=== PATIENT | female | born 1935 | race Caucasian/White ===

== ENCOUNTER 2016-06-27 12:28 | Inpatient (IN) ==
[2016-06-27] MEDS ORDERED: LASIX IVP STA (13:12)
[2016-06-27 13:27] LABS: ABG BASE EXCESS -4 (-2.0-2.0); ABG HCO3 20.9 (22.0-26.0); ABG PCO2 36.3 mmHg (35-45); ABG PH 7.368 (7.35-7.45); ABG TCO2 22 (22.0-28.0)
[2016-06-27] MEDS: ROCEPHIN 1 GM in SODIUM CHLORIDE 100 ML IV SCH (13:30)
[2016-06-27] MEDS: DUONEB NEB SCH ×2 (13:34→22:26)
[2016-06-27 13:42] LABS: BASOPHILS # (AUTO) 0.1 K/uL (0-0.2); BASOPHILS % (AUTO) 0.5 % (0.0-3.0); EOSINOPHILS % (AUTO) 0.1 % (0.0-7.0); HEMATOCRIT 31.9 % (37.0-47.0); HEMOGLOBIN 10.9 g/dl (12.0-16.0); IMMATURE GRANULOCYTE % (AUTO) 0.8 % (0.0-5.0); LYMPHOCYTES # (AUTO) 0.5 K/uL (0.60-3.4); LYMPHOCYTES % (AUTO) 3.9 (10.0-50.0); MEAN CORPUSCULAR HEMOGLOBIN 31.7 pg (27.0-31.0); MEAN CORPUSCULAR HGB CONC 34.2 (31.8-35.4); MEAN CORPUSCULAR VOLUME 92.7 fl (81.0-99.0); MONOCYTES # (AUTO) 0.8 K/uL (0.4-2.0); MONOCYTES % (AUTO) 5.8 (0-10); NEUTROPHILS # (AUTO) 12.2 K/ul (2.0-6.9); NEUTROPHILS % (AUTO) 88.9; PLATELET COUNT 481 10^3/uL (140-440); RED BLOOD COUNT 3.44 10^6/ul (4.20-5.40); WHITE BLOOD COUNT 13.69 K/ul (4.6-10.2)
[2016-06-27 13:47] LABS: ALBUMIN 3.4 g/dL (3.4-5.0); ALBUMIN/GLOBULIN RATIO 0.85; ANION GAP 15.9; BILIRUBIN,TOTAL 0.49 mg/dL (0.00-1.20); BUN/CREATININE RATIO 15.81; CALCIUM 9.2 mg/dL (8.2-10.2); CREATININE 1.96 mg/dL (0.60-1.30); POTASSIUM 3.9 mmol/L (3.5-5.10); TOTAL PROTEIN 7.4 g/dL (5.8-8.1)
[2016-06-27] MEDS: SOLU-MEDROL 40 MG IVP SCH ×2 (14:33→20:11)
[2016-06-27 16:01] VITALS: BMI 20.8
--- NOTE | 2016-06-27 16:11 | CT ---
EXAM: CT chest without contrast. HISTORY: Bronchitis. COMPARISON: Chest radiograph 03/10/2010. TECHNIQUE: Multiple axial images of the chest were obtained without intravenous contrast. Images w ere reformatted in the sagittal and coronal planes. FINDINGS: Evaluation for lymphadenopathy is limited due to lack of intravenous contrast. Multiple small mediastinal lymph nodes are seen. Calcified subcarinal lymph nodes are present. Heart is mil dly enlarged. Atherosclerotic calcifications are present. There is no large pericardial effusion. There are bilateral pleural effusions, moderate in size. Diffuse bilateral ground-glass opacities s een with areas of consolidation in both lungs, greater on the right. Interlobular septal thickening seen bilaterally. No pneumothorax identified. Moderate sized hiatal hernia is present. There is a large cystic mass of the lower left kidney whic h is incompletely imaged but measures at least 7.7 cm diameter. There are some calcified septations within this mass. These were present on the abdominal CT dated 04/14/2010. No other fluid density mass is seen in both renal cortices. Old appearing compression deformity of the T8 vertebral body noted IMPRESSION: Pulmonary edema. Correlate for superimposed pneumonia. Follow-up chest CT within 3 months recommend ed for reassessment.
[2016-06-27] MEDS: PROTONIX PO SCH (16:24)
[2016-06-27 18:43] LABS: BILIRUBIN,URINE Negative (NEGATIVE); KETONES,URINE Negative (NEGATIVE); LEUKOCYTE ESTERASE ,URINE 1+ (NEGATIVE); NITRITE,URINE Positive (NEGATIVE); PROTEIN,URINE 1+ (NEGATIVE); URINE, BLOOD Trace-lysed (NEGATIVE)
[2016-06-27 18:44] LABS: ADD URINE MICROSCOPIC YES
[2016-06-27 18:45] LABS: BACTERIA,URINE 2+ (NOT PRESENT)
[2016-06-27] MEDS ORDERED: KLONOPIN ONE (20:09)
[2016-06-27] MEDS: ULTRAM PO PRN (20:11)
[2016-06-27] MEDS: PRAVACHOL PO SCH (20:11)
[2016-06-27] MEDS: ANTIVERT PO PRN (20:12)
[2016-06-27] MEDS ORDERED: NON-FORMULARY MEDICATION (Esomeprazole Magnesium [Nexium] 40 MG) PO SCH ×22 (21:00)
[2016-06-27] MEDS: KLONOPIN PO SCH (21:00)
[2016-06-27] MEDS ORDERED: LIPITOR PO SCH (21:00)
[2016-06-27] MEDS ORDERED: PRAVACHOL PO SCH (21:00)
[2016-06-28 00:57] LABS: ABG PCO2 37.5 mmHg (35-45); ABG PH 7.365 (7.35-7.45)
[2016-06-28 00:58] LABS: ABG BASE EXCESS -4 (-2.0-2.0); ABG HCO3 21.4 (22.0-26.0); ABG TCO2 23 (22.0-28.0)
[2016-06-28] MEDS: SOLU-MEDROL 40 MG IVP SCH ×3 (04:40→20:19)
[2016-06-28] MEDS: DUONEB NEB SCH ×3 (05:00→21:20)
[2016-06-28] MEDS: PROTONIX PO SCH ×2 (05:51→16:53)
[2016-06-28] MEDS ORDERED: LASIX IVP STA (08:57)
[2016-06-28] MEDS ORDERED: KLONOPIN PO SCH (09:00)
[2016-06-28] MEDS: NORVASC PO SCH (09:10)
[2016-06-28] MEDS: TENORMIN PO SCH (09:10)
[2016-06-28] MEDS: MUCINEX PO SCH (09:11)
[2016-06-28] MEDS: ROCEPHIN 1 GM in SODIUM CHLORIDE 100 ML IV SCH (09:11)
[2016-06-28] MEDS: ZESTRIL PO SCH (09:12)
[2016-06-28 10:13] LABS: HEMATOCRIT 32.3 % (37.0-47.0); HEMOGLOBIN 10.9 g/dl (12.0-16.0); IMMATURE GRANULOCYTE % (AUTO) 1.3 % (0.0-5.0); LYMPHOCYTES # (AUTO) 0.3 K/uL (0.60-3.4); LYMPHOCYTES % (AUTO) 3.5 (10.0-50.0); MEAN CORPUSCULAR HEMOGLOBIN 31.1 pg (27.0-31.0); MEAN CORPUSCULAR HGB CONC 33.7 (31.8-35.4); MEAN CORPUSCULAR VOLUME 92.3 fl (81.0-99.0); MONOCYTES # (AUTO) 0.2 K/uL (0.4-2.0); MONOCYTES % (AUTO) 1.8 (0-10); NEUTROPHILS # (AUTO) 8.8 K/ul (2.0-6.9); NEUTROPHILS % (AUTO) 93.4; PLATELET COUNT 529 10^3/uL (140-440); WHITE BLOOD COUNT 9.39 K/ul (4.6-10.2)
[2016-06-28 10:24] LABS: ALBUMIN 3.3 g/dL (3.4-5.0); ALBUMIN/GLOBULIN RATIO 0.83; ANION GAP 18.7; BILIRUBIN,TOTAL 0.3 mg/dL (0.00-1.20); BUN/CREATININE RATIO 15.78; CREATININE 1.9 mg/dL (0.60-1.30); POTASSIUM 3.7 mmol/L (3.5-5.10); TOTAL PROTEIN 7.3 g/dL (5.8-8.1)
[2016-06-28] MEDS: ULTRAM PO PRN ×3 (12:12→20:23)
--- NOTE | 2016-06-28 14:24 | PCM.PROG ---
Attending Provider: ATTENDING PROVIDER: Dr. ERAN JOYNER DATE OF SERVICE: 06/28/16 SUBJECTIVE: This 81 year old WHITE/ F was hospitalized 06/27/16. The patient states she is doing pretty well, was coughing this morning. Cough productive. Pulse ox dropped into the 80s last night while sleeping and was put on venti mask. REVIEW OF SYSTEMS: CONSTITUTIONAL: No fever, no chills. ENDOCRINE: No weight loss or weight gain. HEENT: No sinus drainage, no sore throat. CVS: No angina symptoms. No CHF symptoms. No palpitations. No atypical chest pain for CAD. No shortness of breath. RESPIRATORY: No cough, no hemoptysis. GI: No melena. No abdominal pain. No nausea, no vomiting. : No hematuria. No polyuria. SKIN: No rash. No wounds. MUSCULOSKELETAL: No pain. TRACK HELPER: No blackout, no dizziness. No headache. No double vision. PSYCHIATRIC: Not anxious; no depression. No suicidal thoughts. No homicidal thoughts. PHYSICAL EXAMINATION: GENERAL: Lying in bed in no distress. VITAL SIGNS: Temperature 96.9 F, Pulse 83, Respiratory Rate 21, BP 147/84, Pulse Ox 92% HEENT: Normocephalic, atraumatic. Mucosa is dry, pallor positive. NECK: No JVP, no carotid bruit. No lymphadenopathy. CARDIAC: S1, S2, no S3. No murmur, gallop or regurgitation. LUNGS: Decreased entry with crackles left side. ABDOMEN: Soft, non-tender. Bowel sounds active. No rigidity, guarding or CVA tenderness. EXTREMITIES: No clubbing, cyanosis or edema. NEUROLOGIC: Awake, alert and oriented x3. LYMPHATIC: No palpable lymph nodes SKIN: Not dry. Intact. MUSCULOSKELETAL: No joint swelling. LAB REVIEW: 06/27/16 13:20 06/27/16 13:20 06/28/16 00:50: Puncture Site Rb, O2 Saturation 85.0 L, ABG pH 7.365, ABG pCO2 37.5, ABG pO2 52.0 L*, ABG HCO3 21.4 L, ABG Total CO2 23, ABG Base Excess -4 L, José Luis Test +, O2 Delivery Device Nc, Oxygen Liter Flow 6.00, FiO2 % 44.0 06/27/16 18:22: Urine Color Yellow, Urine Clarity Slightly, Urine pH 5.0, Ur Specific [place] 1.010, Urine Protein 1+, Urine Glucose (UA) Negative, Urine Ketones Negative, Urine Blood Trace-lysed, Urine Nitrite Positive, Urine Bilirubin Negative, Urine Urobilinogen 0.2, Ur Leukocyte Esterase 1+, Urine Microscopic RBC 2-5, Urine Microscopic WBC 20-30, Ur Squamous Epith Cells 0-2, Ur Renal Epithelial Cell 0-2, Urine Bacteria 2+ 06/27/16 13:20: WBC 13.69 H, RBC 3.44 L, Hgb 10.9 L, Hct 31.9 L, MCV 92.7, MCH 31.7 H, MCHC 34.2, RDW Coeff of Marcelino 12.9, Plt Count 481 H, Immature Gran % (Auto ) 0.8, Neut % (Auto) 88.9, Lymph % (Auto) 3.9 L, [place] % (Auto) 5.8, Eos % (Auto ) 0.1, Baso % (Auto) 0.5, Immature Gran # (Auto) 0.1, Neut # 12.2 H, Lymph # 0.5 L, [place] # 0.8, Eos # 0.0, Baso # 0.1, D-Dimer 1.31, Puncture Site R rad, O2 Saturation 82.0 L, ABG pH 7.368, ABG pCO2 36.3, ABG pO2 47.0 L*, ABG HCO3 20.9 L , ABG Total CO2 22, ABG Base Excess -4 L, José Luis Test +, FiO2 % 21.0, Sodium 136 , Potassium 3.9, Chloride 102, Carbon Dioxide 22 L, Anion Gap 15.9, BUN 31 H, Creatinine 1.96 H, Estimated GFR (MDRD) 24.00, BUN/Creatinine Ratio 15.81, Glucose 126 H, Calcium 9.2, Total Bilirubin 0.49, AST 15, ALT 11 L, Alkaline Phosphatase 70, B-Natriuretic Peptide 2126 H, Total Protein 7.4, Albumin 3.4, Globulin 4.0, Albumin/Globulin Ratio 0.85 ASSESSMENT: 1. Acute on chronic heart failure 2. Community acquired pneumonia 3. COPD 4. Hypertension 5. Dyslipidemia 6. Chronic kidney disease 7. Anemia PLAN: 1. Lasix 20 mg IV times one 2. Ambulate 3. Chest x-ray tomorrow 4. Daily I & O's 5. Lisinopril 5 mg p.o. daily Plan and coordination of the patient's care discussed in the presence of Sexual Assault Response Coordinator and nurse. CONDITION: Stable SCRIBED BY: MEHNAZ CASTELLANOS Water Technician scribed while in presence of service performed by Dr. ERAN JOYNER on 06/28/16 ([id number])
--- NOTE | 2016-06-28 15:54 | HP ---
DATE OF SERVICE: 06/27/16 REASON FOR HOSPITALIZATION/ HISTORY OF PRESENT ILLNESS: Since Monday, not able to breath well, coughing some, no sinus drainage, ears full. No chest pain, weak and tired. Not been sleeping and shortness of breath. REVIEW OF SYSTEMS: CONSTITUTIONAL: No fever, Fatigue. HEENT: No sinus drainage, no sore throat. RESPIRATORY: Cough, no congestion. CARDIOVASCULAR: No atypical chest pain for coronary artery disease. No angina , CHF symptoms, palpitations or shortness of breath. GASTROINTESTINAL: No melena or abdominal pain. No GERD. GENITOURINARY: No hematuria, no prostatism, no polyuria. ARCHAEOLOGIST: No blackout, no dizziness, no headache, no double vision. Gait: Cane MUSCULOSKELETAL: Osteoarthritis pain, no joint swelling. ENDOCRINE: No weight loss, no weight gain. SKIN: Not dry, no rash. PSYCHIATRIC: Anxious, no depression, no suicidal thoughts, no homicidal thoughts. SOCIAL HISTORY: Marital Status: . Alcohol Usage: No . Tobacco Usage: No. Family history : Not significant. PAST SURGERY HISTORY: Status post cholecystectomy MEDICATIONS: Nexium 40mg PO twice a day Ultram 50mg PO Q 4 hours PRN Norvasc 5mg PO daily Atenolol 50mg PO daily Pravachol 40mg PO bedtime Meclizine 25mg PO three times a day PRN Klonopin 0.5mg PO daily Aspirin 81mg daily Prolia 60mg/ml syringe Multivitamin Iron 325mg tablet Calcium ALLERGIES: No know allergies PHYSICAL EXAMINATION: V/S: pulse 85, blood pressure 138/68 and pulse ox 87%. GENERAL APPEARANCE: Oriented times three. Mucosa dry. HEENT: Normal. NECK: No JVP, no bruits. RESPIRATORY:Decreased entry and clear. CARDIOVASCULAR: S1, S2, no S3, no murmurs. No cyanosis, clubbing. No ascites. GI/ABDOMEN: No tenderness. Bowel sounds are active. EXTREMITIES: 2+ edema, pulses +1, equal. ARCHAEOLOGIST: Deep tendon reflexes, sensory, motor and gait all normal. RECTAL: Refused. ASSESSMENT: 1. Shortness of breath, congestive heart failure or pneumonia 2. Hypoxemia 1. Dyslipidemia 2. 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 GERD 5. Anemia 6. Hypertension 7. Chronic kidney disease, stage 3 8. Osteoporosis, Prolia PLAN: 1. Admit to regular floor with telemetry protocol 2. CBC, CMP, BNP and D-dimer. 3. ABG- room air 4. U/A 5. CT chest with contrast 6. Normal saline at SL 7. Cardiac diet 8. DUO NEBS four times a day 9. Solu-Medrol 40 Q 8 hours 10. Lasix 20 mg IVP times one dose 11. Rocephin 1 gram IV daily TIME SPENT: More than 70 minutes. MTDD
[2016-06-28] MEDS: ANTIVERT PO PRN (20:19)
[2016-06-28] MEDS: PRAVACHOL PO SCH (20:19)
[2016-06-28] MEDS: KLONOPIN PO SCH (20:19)
[2016-06-29] MEDS: DUONEB NEB SCH ×3 (04:53→22:50)
[2016-06-29] MEDS: SOLU-MEDROL 40 MG IVP SCH ×3 (05:54→21:53)
[2016-06-29] MEDS: PROTONIX PO SCH ×2 (05:54→17:08)
[2016-06-29] MEDS: ULTRAM PO PRN ×2 (09:43→16:14)
[2016-06-29] MEDS: TESSALON PERLES PO SCH ×3 (09:44→21:53)
[2016-06-29] MEDS: ROCEPHIN 1 GM in SODIUM CHLORIDE 100 ML IV SCH (09:44)
[2016-06-29] MEDS: ZESTRIL PO SCH (09:44)
[2016-06-29] MEDS: NORVASC PO SCH (09:44)
[2016-06-29] MEDS: MUCINEX PO SCH (09:44)
[2016-06-29] MEDS: TENORMIN PO SCH (09:44)
--- NOTE | 2016-06-29 13:36 | PCM.PROG ---
Attending Provider: ATTENDING PROVIDER: Dr. ERAN JOYNER DATE OF SERVICE: 06/29/16 SUBJECTIVE: This 81 year old WHITE/ F was hospitalized 06/27/16. The patient is lying in bed in no distress. She walked yesterday, has less shortness of breath. She has some cough; no congestion. She complained of a dry cough overnight. REVIEW OF SYSTEMS: CONSTITUTIONAL: No fever, no chills. ENDOCRINE: No weight loss or weight gain. HEENT: No sinus drainage, no sore throat. CVS: No angina symptoms. No CHF symptoms. No palpitations. No atypical chest pain for CAD. Less shortness of breath. RESPIRATORY: Dry cough, no hemoptysis. GI: No melena. No abdominal pain. No nausea, no vomiting. : No hematuria. No polyuria. SKIN: No rash. No wounds. MUSCULOSKELETAL: No pain. LEARNING SUPPORT SERVICES DIRECTOR: No blackout, no dizziness. No headache. No double vision. PSYCHIATRIC: Not anxious; no depression. No suicidal thoughts. No homicidal thoughts. PHYSICAL EXAMINATION: GENERAL: Cachetic appearing lady lying in bed in no distress. VITAL SIGNS: Temperature 97.8 F, Pulse 83, Respiratory Rate 16, BP 124/69, Pulse Ox 93% HEENT: Normocephalic, atraumatic. No scleral icterus. Mucosa is dry, pallor positive. NECK: No JVP, no carotid bruit. No lymphadenopathy. CARDIAC: S1, S2, no S3. No murmur, gallop or regurgitation. LUNGS: Decreased entry with basilar crackles. Clear to auscultation. ABDOMEN: Soft, non-tender. Bowel sounds active. No rigidity, guarding or CVA tenderness. EXTREMITIES: No clubbing, cyanosis or edema. NEUROLOGIC: Awake, alert and oriented x3. LYMPHATIC: No palpable lymph nodes SKIN: Not dry. Intact. MUSCULOSKELETAL: No joint swelling. LAB REVIEW: 06/28/16 09:55 06/28/16 09:55 06/28/16 09:55: WBC 9.39, RBC 3.50 L, Hgb 10.9 L, Hct 32.3 L, MCV 92.3, MCH 31.1 H, MCHC 33.7, RDW Coeff of Marcelino 13.2, Plt Count 529 H, Immature Gran % (Auto ) 1.3, Neut % (Auto) 93.4, Lymph % (Auto) 3.5 L, [place] % (Auto) 1.8, Eos % (Auto ) 0.0, Baso % (Auto) 0.0, Immature Gran # (Auto) 0.1, Neut # 8.8 H, Lymph # 0.3 L, [place] # 0.2 L, Eos # 0.0, Baso # 0.0, Sodium 136, Potassium 3.7, Chloride 100 , Carbon Dioxide 21 L, Anion Gap 18.7, BUN 30 H, Creatinine 1.90 H, Estimated GFR (MDRD) 25.00, BUN/Creatinine Ratio 15.78, Glucose 188 H D, Calcium 9.0, Total Bilirubin 0.30, AST 12 L, ALT 10 L, Alkaline Phosphatase 67, Total Protein 7.3, Albumin 3.3 L, Globulin 4.0, Albumin/Globulin Ratio 0.83 ASSESSMENT: 1. Shortness of breath, congestive heart failure or pneumonia. 2. Hypoxemia 3. Dyslipidemia 4. Sciatica 5. History of CVA right facial palsy 6. GERD 7. Anemia 8. Hypertension 9. Chronic kidney disease, Stage 3 10. Osteoporosis. PLAN: 1. Tessalon Perles 2. Continue Rocephin and Duonebs 3. Out of bed to chair 4. Chest x-ray Plan and coordination of the patient's care discussed in the presence of Technical Adjuster and nurse. CONDITION: Stable SCRIBED BY: MEHNAZ CASTELLANOS Community Health Advisor scribed while in presence of service performed by Dr. ERAN JOYNER on 06/29/16 ([id number])
--- NOTE | 2016-06-29 14:12 | DI ---
EXAM: CHEST FRONTAL AND LATERAL VIEWS HISTORY: Shortness of breath. COMPARISON: 03/10/2010 FINDINGS: Low lung volumes. Heart size is probably remains within normal limits. There is ectasia and moderate atherosclerotic disease of the aorta. Small bilateral pleural effusions. Basilar con solidation, much more noticeable on the left. No active congestive heart failure visible pneumothor ax. IMPRESSION: Low lung volumes. Basilar consolidations most apparent on the left which could indicate atelectasis or pneumonia. Tiny pleural effusions. No active congestive heart failure.
[2016-06-29] MEDS: KLONOPIN PO SCH (21:53)
[2016-06-29] MEDS: PRAVACHOL PO SCH (21:53)
[2016-06-30] MEDS: ULTRAM PO PRN ×3 (00:34→21:02)
[2016-06-30] MEDS: DUONEB NEB SCH ×3 (05:18→22:33)
[2016-06-30] MEDS: SOLU-MEDROL 40 MG IVP SCH ×3 (05:28→20:56)
[2016-06-30] MEDS: PROTONIX PO SCH ×2 (05:36→19:29)
[2016-06-30] MEDS: NORVASC PO SCH (09:44)
[2016-06-30] MEDS: ROCEPHIN 1 GM in SODIUM CHLORIDE 100 ML IV SCH (09:44)
[2016-06-30] MEDS: MUCINEX PO SCH (09:44)
[2016-06-30] MEDS: ZESTRIL PO SCH (09:44)
[2016-06-30] MEDS: TESSALON PERLES PO SCH ×3 (09:44→20:56)
[2016-06-30] MEDS: TENORMIN PO SCH (09:45)
[2016-06-30] MEDS: KEFLEX PO SCH (20:56)
[2016-06-30] MEDS: KLONOPIN PO SCH (20:56)
[2016-06-30] MEDS: PRAVACHOL PO SCH (20:56)
[2016-07-01] MEDS: DUONEB NEB SCH ×2 (05:00→14:03)
[2016-07-01] MEDS: SOLU-MEDROL 40 MG IVP SCH ×2 (05:55→13:00)
[2016-07-01] MEDS: PROTONIX PO SCH (05:55)
[2016-07-01] MEDS ORDERED: ANTIVERT PO SCH (09:00)
[2016-07-01] MEDS: TESSALON PERLES PO SCH (09:13)
[2016-07-01] MEDS: MUCINEX PO SCH (09:13)
[2016-07-01] MEDS: TENORMIN PO SCH (09:14)
[2016-07-01] MEDS: KEFLEX PO SCH (09:14)
[2016-07-01] MEDS: NORVASC PO SCH (09:14)
[2016-07-01] MEDS: ZESTRIL PO SCH (09:14)
--- NOTE | 2016-07-01 09:20 | PCM.PROG ---
Attending Provider: ATTENDING PROVIDER: Dr. ERAN JOYNER DATE OF SERVICE: 07/01/16 SUBJECTIVE: This 81 year old WHITE/ F was hospitalized 06/27/16. The patient is sitting up in bed in no distress. She states she walked yesterday. She feels good today. The patient is dropping sats and qualifies for home o2. I discussed this with the patient; she is in agreement and verbalized understanding. REVIEW OF SYSTEMS: CONSTITUTIONAL: No fever, no chills. ENDOCRINE: No weight loss or weight gain. HEENT: No sinus drainage, no sore throat. CVS: No angina symptoms. No CHF symptoms. No palpitations. No atypical chest pain for CAD. No shortness of breath. RESPIRATORY: Dry, hacking cough. No hemoptysis. GI: No melena. No abdominal pain. No nausea, no vomiting. : No hematuria. No polyuria. SKIN: No rash. No wounds. MUSCULOSKELETAL: No pain. PLASTIC PANEL INSTALLER: No blackout, no dizziness. No headache. No double vision. PSYCHIATRIC: Not anxious; no depression. No suicidal thoughts. No homicidal thoughts. PHYSICAL EXAMINATION: GENERAL: Sitting in bed in no distress. VITAL SIGNS: Temperature 97.0 F, Pulse 80, Respiratory Rate 16, BP 136/72, Pulse Ox 91% HEENT: Normocephalic, atraumatic. Mucosa is dry, pallor positive. NECK: No JVP, no carotid bruit. No lymphadenopathy. CARDIAC: S1, S2, no S3. No murmur, gallop or regurgitation. LUNGS: Decreased entry with basilar crackles. ABDOMEN: Soft, non-tender. Bowel sounds active. No rigidity, guarding or CVA tenderness. EXTREMITIES: No clubbing, cyanosis or edema. NEUROLOGIC: Awake, alert and oriented x3. LYMPHATIC: No palpable lymph nodes SKIN: Not dry. Intact. MUSCULOSKELETAL: No joint swelling. LAB REVIEW: 06/28/16 09:55 06/28/16 09:55 ASSESSMENT: 1. CHF 2. Hypoxemia needing oxygen PLAN: 1. Will discharge home 2. Keflex 500 mg b.i.d. for 5 days 3. Prednisone 10 mg b.i.d. for five days 4. Tessalon Perles 100 mg t.i.d. for 7 days 5. Robitussin t.i.d. for 7 days 6. Lasix 20 mg p.o. daily 7. No salt diet 8. Home oxygen 2L/NC as the patient feels better on 02. Discussed risks/ complications and benefits of oxygen. She verbalized understanding of this. 9. The patient is to followup in the office in one week. Plan and coordination of the patient's care discussed in the presence of Clearing Distribution Clerk and nurse. CONDITION: Stable. SCRIBED BY: MEHNAZ CASTELLANOS, Truck Rental Clerk scribed while in presence of service performed by Dr. ERAN JOYNER on 07/01/16 ([id number])
[2016-07-01] MEDS ORDERED: LASIX TAB PO SCH (09:30)
--- NOTE | 2016-07-01 10:20 | CM.DICTOOL ---
ADMISSION: 06/27/16 12:28 DISCHARGE: 07/01/16 FINAL DIAGNOSIS Hypoxia (Acute) Shortness of breath (Acute) CHF HISTORY OF: CAD HTN COPD DYSLIPIDEMIA S/P CATARACT SURGERY IN CVA 2013 GERD OSTEOARTHRITIS OSTEOPOROSIS ANEMIA CKD 3 LAST VITALS Temp Pulse Resp BP Pulse Ox 97.0 F L 80 16 136/72 91 L 07/01/16 05:39 07/01/16 05:39 07/01/16 05:39 07/01/16 05:39 07/01/16 05:39 ACTIVE MEDICATIONS Amlodipine Besylate (Norvasc) 5 mg PO DAILY [facility] Last Admin: 07/01/16 09:14 Dose: 5 mg Atenolol (Tenormin) 50 mg PO DAILY [facility] Last Admin: 07/01/16 09:14 Dose: 50 mg Benzonatate (Tessalon Perles) 100 mg PO TID [facility] Last Admin: 07/01/16 09:13 Dose: 100 mg Cephalexin (Keflex) 500 mg PO Q12HR [facility] Last Admin: 07/01/16 09:14 Dose: 500 mg Clonazepam (Klonopin) 0.5 mg PO BEDTIME [facility] Last Admin: 06/30/16 20:56 Dose: 0.5 mg Furosemide (Lasix Tab) 20 mg PO QDAC [facility] Lisinopril (Zestril) 5 mg PO DAILY [facility] Last Admin: 07/01/16 09:14 Dose: 5 mg Meclizine HCl (Antivert) 25 mg PO TID [facility] Last Admin: 07/01/16 09:14 Dose: 25 mg Pravastatin Sodium (Pravachol) 40 mg PO BEDTIME [facility] Last Admin: 06/30/16 20:56 Dose: 40 mg Tramadol HCl (Ultram) 50 mg PO Q4H PRN PRN Reason: pain Last Admin: 06/30/16 21:02 Dose: 50 mg NEXIUM 40 MG O BID ALLERGIES No Known Allergies Allergy (Unverified 03/14/16 10:37) NEW PRESCRIPTIONS: NEW MEDICATIONS: 1. LASIX 20MG TAKE 1 BY MOUTH DAILY 2. LISINOPRIL 5MG TAKE 1 BY MOUTH DAILY 3. KEFLEX 500MG TAKE 1 BY MOUTH 2 TIMES A DAY UNTIL ALL GONE 4. PREDNISONE 10MG TAKE 1 BY MOUTH 2 TIMES A DAY. TAKE WITH FOOD. 5. TESSALON PERLES 100MG TAKE 1 BY MOUTH 3 TIMES A DAY FOR COUGH. 6. ROBITUSSIN AC TAKE 5ML EVERY 4 HOURS NEEDED FOR COUGH. DISEASE SPECIFIC EDUCATION: CHF HYPOXEMIA O2 THERAPY ABX THERAPY STEROID THERAPY LAB REVIEW: 06/28/16 09:55 06/28/16 09:55 PLAN: DISCHARGE HOME CONTINUE HOME MEDICATIONS PER NURSING INSTRUCTIONS NEW MEDICATIONS: 1. LASIX 20MG TAKE 1 BY MOUTH DAILY 2. LISINOPRIL 5MG TAKE 1 BY MOUTH DAILY 3. KEFLEX 500MG TAKE 1 BY MOUTH 2 TIMES A DAY UNTIL ALL GONE 4. PREDNISONE 10MG TAKE 1 BY MOUTH 2 TIMES A DAY. TAKE WITH FOOD. 5. TESSALON PERLES 100MG TAKE 1 BY MOUTH 3 TIMES A DAY FOR COUGH. 6. ROBITUSSIN AC TAKE 5ML EVERY 4 HOURS NEEDED FOR COUGH. FOLLOW UP WITH DR. JOYNER ON MondayJune AT 10:15 AM. IF UNABLE TO KEEP THIS APPOINTMENT, CALL [phone] TO RESCHEDULE. ALERT AND ORIENTED X 4. COOPERATIVE WITH CARE. DRUM LOADER AND UNLOADER REVEALS SINUS RHYTHM. HAS DYSPNEA WITH ACTIVITY. HAS MOIST NON-PRODUCTIVE COUGH. POX 91% ON O2 AT 2L/C. HAS SALINE LOCK IN LEFT FOREARM SITE IS CLEAR. IS AFEBRILE. VITAL SIGNS ARE STABLE. IS A STANDBY ASSIST WITH STRAIGHT CANE. NO ACUTE DISTRESS NOTED. ERAN JOYNER MD
[2016-07-01 10:31] VITALS: BP 149/99; TEMP 97.2
--- NOTE | 2016-07-04 11:48 | ECHO2D ---
Date of Exam: 06/30/16 Ordering Physician: AMITA CASTRO Reason for Echo: CHF M-Mode Normal Adult Results LV Dimensions Normal Adult Results AoV Opening excursions >1.6 >1.6 LVEDD-base- 3.5-5.8 4.1 Ao root dimensions 2.0-3.7 2.9 LVESD-base- 3.1-4.6 L. Atrium dimensions 1.9-3.8 4.1 Post. Wall thickness 0.8-1.1 0.9 IV septum (thickness) 0.7-1.2 0.9 Post. Wall excursion 0.72-1.3 NORMAL Septal motion NORMAL Systolic motion R. Ventricular cavity 1.5-2.0 NORMAL LVEF 60% 55% Paradoxical septal wall motion NORMAL 2-D : 2-D M Mode Echocardiogram was performed using apical four chamber and left parasternal long and short axis views. Mitral, tricuspid and aortic valves appear to be normal. Contractility of the left ventricle seems to be normal, so is the cavity size. Left atrial cavity size enalarged,aortic root appear to be normal. There is no pericardial effusion. There is no thrombus noted in the left ventricular or left aortic cavity. No mitral valve prolapse noted. DOPPLER WITH COLOR FLOW: MODERATE MITRAL REGURGITATION M-MODE: MV: NORMAL AV: NORMAL TV: NORMAL PV: CHAMBER SIZE: ENLARGED LEFT ATRIAL CAVITY WALL MOTION: NORMAL PERICARDIUM: NORMAL INTERPRETATION: 1. ENLARGED LEFT ATRIAL CAVITY 2. NORMAL LEFT VENTRICULAR CONTRACTILITY 3. MODERATE MITRAL REGURGITATION MTDD
--- NOTE | 2016-08-25 11:31 | DS ---
DATE OF SERVICE: 07/01/16 FINAL DIAGNOSIS: 1. Hypoxia (acute) 2. Shortness of breath (acute) 3. Congestive heart failure 4. History of coronary artery disease 5. Hypertension 6. COPD 7. Dyslipidemia 8. Status post cataract surgery in 9. CVA 2012 10.GERD 11.Osteoarthritis 12.Osteoporosis 13.Anemia 14.Chronic kidney disease, stage 3 LAST VITALS: Temperature 97, pulse 80, respiratory rate 16, blood pressure 136/72 and pulse ox 91%. DISCHARGE INSTRUCTIONS: Discharge home. Continue home medications as per nursing instructions. Followup with Dr. Hodge on MondayJuly 08 at 10:15am. MEDICATIONS AT DISCHARGE: Norvasc Tenormin Tessalon Perles Keflex Klonopin Lasix Zestril Antivert Pravachol Ultram Nexium ALLERGIES: No known allergies NEW PRESCRIPTIONS: Lasix 20mg take one by mouth daily Lisinopril 5mg take one by mouth daily Keflex 500mg take one by mouth two times a day until all gone Prednisone 10mg take one by mouth two times a day. Take with food. Tessalon Perles 100mg take one by mouth three times a day for cough Robitussin AC take 5ml every 4 hours as needed for cough. DIET INSTRUCTIONS: Heart healthy and stay well hydrated. ACTIVITY: As tolerated. May gradually resume activity SMOKING: Never smoker DISEASE SPECIFIC EDUCATION: Congestive heart failure Hypoxemia O2 therapy ABX therapy Steroid therapy HOSPITAL COURSE: The patient was admitted from the office for hypoxemia, shortness of breath and she was initially seen the patient was hypoxic and acute shortness of breath. Labs showed BNP 2126. ABG showed pH 7.368, pCO2 36.[address] of the chest done which showed pulmonary edema. Correlate for superimposed pneumonia. The patient was started with IV antibiotics, steroids and breathing treatment. We had Dr. Miner to do an echocardiogram and he was courteous enough to do the echocardiogram which it did show enlarged left atrial cavity, normal left ventricular contractility, moderate mitral regurgitation with ejection fraction of 55%. The patient was gradually improving and was able to walk and talk fine. Did not have any problem but she was qualified for the oxygen and she was willing to use the oxygen and she understands the importance of oxygen and highly inflammable state and verbalized understanding. Still wanting to use it as it was helping her a lot. Advised her to take some probiotics and we will be seen in the office within one week. TIME SPENT: More than 45 minutes today. SONAM
--- NOTE | 2016-10-26 13:32 | PN ---
DATE OF SERVICE: 06/30/2016 SUBJECTIVE: The patient was admitted with congestive heart failure and hypoxemia. The patient is less short of breath, but more weak and tired. Complains about no energy. REVIEW OF SYSTEMS: CONSTITUTIONAL: Weak and tired. No fever, no chills. HEENT: Normal. ENDOCRINE: No weight gain, no weight loss. CVS: No angina symptoms. No palpitations. No atypical chest pain for CAD. Less shortness of breath. No PND, no orthopnea. RESPIRATORY: No cough, no hemoptysis. GI: No nausea, no vomiting. No abdominal pain. : No hematuria. No polyuria. MUSCULOSKELETAL:. No joint swelling. PSYCHIATRIC: Not anxious. No depression. No suicidal thoughts. No homicidal thoughts. SKIN: Intact. No rash. PHYSICAL EXAMINATION: V/S: Blood pressure 138/69, respiratory rate 16, heart rate 86, temperature 97.9. GENERAL: Cachectic lady lying in the bed, not in any distress. HEENT: Normocephalic, atraumatic. Mucosa dry. Pallor positive. No icterus. NECK: Supple. No JVD, no carotid bruit. No lymphadenopathy. LUNGS: Decreased and some basilar crackles. No rales or rhonchi. HEART: S1, S2 normal. No S3. Systolic murmur positive. No gallop or regurgitation. ABDOMEN: Soft, nontender. Bowel sounds active. No rigidity. No rebound or guarding. No CVA tenderness. EXTREMITIES: No clubbing, cyanosis or pedal edema. MUSCULOSKELETAL: No joint swelling. NEUROLOGIC: Awake, alert, oriented times three. No focal deficit. LYMPHATIC: No lymph nodes palpable. SKIN: Intact. LABS: White count 9.3, hemoglobin 10.9, hematocrit 32.3, platelet count 529, sodium 136, potassium 3.7, chloride 105, bicarb 21, BUN 30, creatinine 1.90. ASSESSMENT: 1. ACUTE ON CHRONIC HEART FAILURE 2. SEVERE MITRAL VALVE REGURGITATION 3. HYPERTENSION 4. HISTORY OF CVA IN 2012 WITH MINIMAL RESIDUAL WEAKNESS 5. TRANSVERSE CHOLECYSTECTOMY PLAN: 1. Continue the DuoNebs. 2. I & O's. 3. Klonopin at bedtime. 4. Lasix 20 mg. 5. Rocephin 1 gram daily. 6. Will follow up with the patient in daily rounds. TIME SPENT: More than 30 minutes MTDD
== END 2016-07-01 15:20 | disposition home or self-care (01) | DRG 205 ==
LOC: SCU 12:28
PROVIDERS: ADMIT Emergency Medicine; ATTEND Emergency Medicine
DX: R09.02 Hypoxemia (principal); J18.9 Pneumonia, unspecified organism; J81.1 Chronic pulmonary edema; I50.9 Heart failure, unspecified; R06.02 Shortness of breath; I51.7 Cardiomegaly; I34.0 Nonrheumatic mitral (valve) insufficiency; I25.10 Atherosclerotic heart disease of native coronary artery without angina pectoris; I10 Essential (primary) hypertension; J44.9 Chronic obstructive pulmonary disease, unspecified; D64.9 Anemia, unspecified; N18.3 Chronic kidney disease, stage 3 (moderate); E78.5 Hyperlipidemia, unspecified; K21.9 Gastro-esophageal reflux disease without esophagitis; I69.392 Facial weakness following cerebral infarction; M19.90 Unspecified osteoarthritis, unspecified site; M81.0 Age-related osteoporosis without current pathological fracture; Z79.01 Long term (current) use of anticoagulants; Z79.899 Other long term (current) drug therapy
CPT/HCPCS: 36415; 80053; 81001; 82803; 83880; 85025; 85379; 87086; 87186; 93005; 93010; 94640; 94761

== ENCOUNTER 2016-07-12 09:48 | Outpatient (CLI) ==
[2016-07-12 10:09] VITALS: BP 159/68; TEMP 98.5
[2016-07-12] MEDS ORDERED: PROLIA SUBCUT STA (10:09)
== END 2016-07-12 09:49 | disposition home or self-care (01) ==
LOC: OPMED 09:48
PROVIDERS: ATTEND Emergency Medicine
DX: M81.0 Age-related osteoporosis without current pathological fracture (principal); D64.9 Anemia, unspecified
CPT/HCPCS: 96372; 99211

== ENCOUNTER 2016-07-27 20:52 | Inpatient (IN) | payer OTHER ==
[2016-07-27] MEDS ORDERED: SODIUM CHLORIDE 1,000 ML IV STA (21:10)
[2016-07-27] MEDS ORDERED: URO-JET MUCOUSMEMB STA (21:10)
[2016-07-27] MEDS ORDERED: ZOFRAN 4 MG/2 ML IVP STA (21:18)
[2016-07-27 21:34] LABS: BASOPHILS % (AUTO) 0.3 % (0.0-3.0); EOSINOPHILS % (AUTO) 0.1 % (0.0-7.0); HEMATOCRIT 36.3 % (37.0-47.0); HEMOGLOBIN 13.2 g/dl (12.0-16.0); LYMPHOCYTES # (AUTO) 0.7 K/uL (0.60-3.4); MEAN CORPUSCULAR HEMOGLOBIN 30.8 pg (27.0-31.0); MEAN CORPUSCULAR HGB CONC 36.4 (31.8-35.4); MEAN CORPUSCULAR VOLUME 84.6 fl (81.0-99.0); MONOCYTES # (AUTO) 0.9 K/uL (0.4-2.0); MONOCYTES % (AUTO) 11.3 (0-10); NEUTROPHILS # (AUTO) 6.2 K/ul (2.0-6.9); NEUTROPHILS % (AUTO) 78.3; PLATELET COUNT 521 10^3/uL (140-440); RED BLOOD COUNT 4.29 10^6/ul (4.20-5.40); WHITE BLOOD COUNT 7.96 K/ul (4.6-10.2)
[2016-07-27 21:49] LABS: ABG BASE EXCESS 1 (-2.0-2.0); ABG HCO3 23.2 (22.0-26.0); ABG PCO2 27.5 mmHg (35-45); ABG PH 7.534 (7.35-7.45)
[2016-07-27 21:50] LABS: ABG TCO2 24 (22.0-28.0)
[2016-07-27 21:54] LABS: ALBUMIN 3.8 g/dL (3.4-5.0); ALBUMIN/GLOBULIN RATIO 1.06; ANION GAP 19.6; BILIRUBIN,TOTAL 0.66 mg/dL (0.00-1.20); BUN/CREATININE RATIO 17.68; CALCIUM 6.7 mg/dL (8.2-10.2); CREATININE 1.47 mg/dL (0.60-1.30); TOTAL PROTEIN 7.4 g/dL (5.8-8.1)
[2016-07-27 21:55] LABS: FLU INTERNAL QC INTERNAL QC VALID; RAPID FLU A NEGATIVE (NEGATIVE); RAPID FLU B NEGATIVE (NEGATIVE)
[2016-07-27 22:03] LABS: POTASSIUM 2.6 mmol/L (3.5-5.10)
[2016-07-27 22:07] LABS: ERYTHROCYTE SEDIMENTATION RATE 29 mm/hr (0-20); ESR INTERNAL QC INTERNAL QC VALID
[2016-07-27] MEDS ORDERED: POTASSIUM CHLORIDE PREMIX RUN 40 MEQ in PREMIX 100 ML WATER 2 BAG IV STA (22:08)
--- NOTE | 2016-07-27 22:17 | CT ---
EXAM: CT brain without contrast HISTORY: Confusion TECHNIQUE: CT of the brain without intravenous contrast FINDINGS: There is no acute hemorrhage midline shift or mass effect. No hydrocephalus or abnormal extra-axial fluid collection. Generalized involutional atrophy, moderate. Chronic microvascular ch anges of the white matter tracts, moderate. No acute large vessel territorial infarct is seen. The bony cranium appears normal. The visualized paranasal sinuses are clear. Soft tissues without signi ficant abnormality. IMPRESSION: 1. Chronic changes as described. No acute intracranial abnormality is seen.
[2016-07-27] MEDS ORDERED: POTASSIUM CHLORIDE PREMIX RUN 200 ML IV ONE (22:25)
--- NOTE | 2016-07-27 22:25 | CT ---
EXAM: CT of the chest without contrast. HISTORY: Cough. PROCEDURE: Contiguous axial CT images of the chest without contrast with coronal and sagittal refor mats. FINDINGS: The heart is within normal limits in size. The thoracic aorta is within normal limits in diameter. There are atherosclerotic calcifications in the thoracic aorta. There are coronary artery calcifications. There are calcified mediastinal lymph nodes. There is minimal lingular and bibasila r atelectasis and/or pneumonia. There is a moderate hiatal hernia. There are degenerative changes in the spine. Impression: Minimal lingular and bibasilar atelectasis and/or pneumonia. Atherosclerotic vascular disease. Moderate hiatal hernia.
--- NOTE | 2016-07-27 22:26 | CT ---
Exam: CT of the abdomen and pelvis without contrast History: Vomiting Technique: [address] of the abdomen and pelvis without intravascular contrast FINDINGS: The lung bases are clear. Small to moderate hiatus hernia is present. The liver, pancre as, spleen and adrenal glands appear normal. There is a large left renal cyst measuring 7 cm. Smal ler cysts present on both kidneys. No hydronephrosis, hydroureter or inflammation is seen on either side. The appendix is normal. Bowel loops demonstrate normal caliber. No inflamatory change seen i n the mesentery or retroperitoneum. Atherosclerotic calcification of the aorta and visceral arteries. No aneurysmal dilation of the aor ta. Colonic diverticulosis of the sigmoid. No inflammation of the pelvic fat. No free pelvic fluid. N ormal pelvic genitourinary structures. No acute findings of the skeleton. Impression: 1. No inflammatory process, bowel or urinary obstruction is seen. 2. Bilateral renal cysts 3. Small to moderate hiatus hernia 4. Colonic diverticulosis 5. No acute findings of the abdomen or pelvis
[2016-07-27] MEDS ORDERED: TRANDATE IVP STA (22:57)
[2016-07-27] MEDS ORDERED: VASOTEC IV IVP STA (22:57)
[2016-07-27 22:58] LABS: BILIRUBIN,URINE Negative (NEGATIVE); KETONES,URINE Trace (NEGATIVE); LEUKOCYTE ESTERASE ,URINE Negative (NEGATIVE); NITRITE,URINE Negative (NEGATIVE); PROTEIN,URINE 2+ (NEGATIVE); URINE, BLOOD Trace-intact (NEGATIVE)
--- NOTE | 2016-07-27 23:00 | ED.PDOC ---
General ED Provider: Dr. ALESSIA FRANCO-ER Chief Complaint: Nausea/Vomiting Stated Complaint: shes had vomiting and diarrhea for a day--not been able to take her bp meds Time Seen by Physician: 20:55 Mode of Arrival: Wheelchair Information Source: Patient, Family Exam Limitations: No limitations Primary Care Provider: AMITA CASTRO Nursing and Triage Documentation Reviewed and Agree: Yes GI Complaint Exam - Vomiting/Diarrhea Complaint/Exam Onset/Duration: 24hrs Symptoms Are: Still present Initial Severity: Mild Current Severity: Moderate Character of Vomiting: Reports: Non-bilious Character of Diarrhea: Reports: Watery Aggravating: Reports: Food Alleviating: Reports: None Associated Signs and Symptoms: Denies: Dizziness, Light-headedness, Melena, Hematemesis, Fever, Abdominal pain, Cramping Recent Positive Test: No Use of Oral Contraceptives: No Use of Depoprovera: No Compliant With Contraceptive Use: No Non-GI Risk Factors: Reports: None Kussmaul Respirations Present: No Differential Diagnoses: Dehydration, Viral Gastroenteritis, Bacterial Gastroenteritis, UTI Review of Systems - Review Of Systems Constitutional: Reports: No symptoms Eyes: Reports: No symptoms Ears, Nose, Mouth, Throat: Reports: No symptoms Respiratory: Reports: No symptoms Cardiac: Reports: No symptoms GI: Reports: Diarrhea, Nausea, Vomiting : Reports: No symptoms Musculoskeletal: Reports: No symptoms Skin: Reports: No symptoms Neurological: Reports: No symptoms Endocrine: Reports: No symptoms Hematologic/Lymphatic: Reports: No symptoms All Other Systems: Reviewed and Negative Past Medical History - Past Medical History Previously Healthy: Yes Endocrine: Reports: Dyslipidemia Cardiovascular: Reports: Hypertension Respiratory: Reports: None Hematological: Reports: None Gastrointestinal: Reports: GERD Genitourinary: Reports: None Neuro/Psych: Reports: None Musculoskeletal: Reports: None Cancer: Reports: None Last Menstrual Period: post menopausal - Surgical History General Surgical History: Reports: None - Family History Family History: Reports: None - Social History Smoking Status: Never smoker Hx Substance Use: No Alcohol Screening: None Lives: With family - Immunizations Tetanus Shot up to Date: Yes (unsure but believes it's up to date) Physical Exam - Physical Exam Appearance: Well-appearing, No pain distress, Well-nourished Pain Distress: Mild Eyes: KOBE ENT: Ears normal, Nose normal, Oropharynx normal Neck: Supple Respiratory: Airway patent, Breath sounds clear, Breath sounds equal, Respirations nonlabored Cardiovascular: RRR, Pulses normal, No rub, No murmur GI/: Soft, Nontender, No masses, Bowel sounds normal, No Organomegaly Musculoskeletal: Normal strength, ROM intact, No edema, No calf tenderness Skin: Warm, Dry, Normal color Neurological: Sensation intact, Motor intact, Reflexes intact, Cranial nerves intact, Alert, Oriented Psychiatric: Affect appropriate, Mood appropriate Interpretation - Radiology Interpretation Radiology Interpretation By: Radiologist Radiology Results: Negative Exam Interpreted: CT Scan - EKG Interpretation Time of EKG #1: 23:00 Rate: Normal Rhythm: Sinus Ectopy: None [place]: NL ST Segment: Normal Physician Notification - Case Discussed Physician Notified: dr muro Critical Care Note - Critical Care Note Total Time (mins): 0 Course - Course Hematology/Chemistry: 07/27/16 21:30 07/27/16 21:30 Orders, Labs, Meds: Lab Review 07/27/16 07/27/16 07/27/16 21:09 21:30 22:50 WBC 7.96 RBC 4.29 Hgb 13.2 Hct 36.3 L MCV 84.6 MCH 30.8 MCHC 36.4 H RDW Coeff of Marcelino 12.3 Plt Count 521 H Immature Gran % (Auto) 1.0 Neut % (Auto) 78.3 Lymph % (Auto) 9.0 L [place] % (Auto) 11.3 H Eos % (Auto) 0.1 Baso % (Auto) 0.3 Immature Gran # (Auto) 0.1 Neut # 6.2 Lymph # 0.7 [place] # 0.9 Eos # 0.0 Baso # 0.0 ESR 29 H D-Dimer 0.89 Puncture Site Lb O2 Saturation 99.0 ABG pH 7.534 H* ABG pCO2 27.5 L ABG pO2 103.0 H ABG HCO3 23.2 ABG Total CO2 24 ABG Base Excess 1 José Luis Test + FiO2 % 21.0 Sodium 121 L Potassium 2.6 L* Chloride 79 L Carbon Dioxide 25 Anion Gap 19.6 BUN 26 H Creatinine 1.47 H Estimated GFR (MDRD) 34.00 BUN/Creatinine Ratio 17.68 Glucose 126 H Lactic Acid 9.8 Calcium 6.7 L Total Bilirubin 0.66 AST 16 ALT 13 Alkaline Phosphatase 87 Total Protein 7.4 Albumin 3.8 Globulin 3.6 Albumin/Globulin Ratio 1.06 Amylase 40 Lipase 37 Procalcitonin 0.14 Urine Color Yellow Urine Clarity Clear Urine pH 7.0 Ur [address] [place] 1.020 Urine Protein 2+ Urine Glucose (UA) Negative Urine Ketones Trace Urine Blood Trace-intact Urine Nitrite Negative Urine Bilirubin Negative Urine Urobilinogen 0.2 Ur Leukocyte Esterase Negative Urine Microscopic RBC 2-5 Ur Squamous Epith Cells 0-2 Urine Bacteria Trace Influenza A (Rapid) Negative Influenza B (Rapid) Negative Orders Category Date Time Status ABG DRAW REQUEST Stat CARDIO 07/27/16 21:10 Completed EKG-(ED ONLY) Stat CARDIO 07/27/16 21:09 Completed ED IV/MEDIPORT/POWERPORT .ONCE EMERGENCY 07/27/16 21:10 Active Diaz [ED CATHETER INSERTION AND CARE] .ONCE EMERGENCY 07/27/16 21:10 Active ABG Stat LAB 07/27/16 21:09 Completed AMYLASE Stat LAB 07/27/16 21:30 Completed CBC W/ AUTO DIFF Stat LAB 07/27/16 21:30 Completed COMPREHENSIVE METABOLIC PANEL Stat LAB 07/27/16 21:30 Completed D-DIMER Stat LAB 07/27/16 21:30 Completed ESR Stat LAB 07/27/16 21:30 Completed LACTIC ACID Stat LAB 07/27/16 21:30 Completed LIPASE Stat LAB 07/27/16 21:30 Completed MOLECULAR GROUP A STREP Stat LAB 07/27/16 21:30 Results PROCALCITONIN Stat LAB 07/27/16 21:30 Completed RAPID FLU A/B Stat LAB 07/27/16 21:30 Completed STREP SCREEN Stat LAB 07/27/16 21:30 Results URINALYSIS C & S IF INDICATED Stat LAB 07/27/16 22:50 Completed 0.9 % Sodium Chloride [Saline Flush] MEDS 07/27/16 21:10 Ordered 1 syr IVF PRN PRN Enalaprilat Dihydrate [Vasotec IV] MEDS 07/27/16 22:57 Discontinued 1.25 mg IVP ONCE STA Labetalol HCl [Trandate] MEDS 07/27/16 22:57 Discontinued 20 mg IVP ONCE STA Lidocaine HCl [Uro-Jet] MEDS 07/27/16 21:10 Discontinued 10 ml [id number] ONCE STA Ondansetron HCl/Pf [Zofran 4 mg/2 ml] MEDS 07/27/16 21:18 Discontinued 4 mg IVP ONCE STA Potassium Chloride [Potassium Chloride Prem[place]] 200 MEDS 07/27/16 22:25 Discontinued ml IV .STK-MED Potassium Chloride [Potassium Chloride Prem[place]] 40 MEDS 07/27/16 22:08 Active meq Premix 100 ml Water 2 bag IV ONCE Sodium Chloride 0.9% [Sodium Chloride] 1,000 ml MEDS 07/27/16 21:10 Discontinued IV BOLUS Sodium Chloride 0.9% [Sodium Chloride] 500 ml MEDS 07/27/16 23:[address] ABDOMEN/PELVIS WO CONTRAST Stat RADS 07/27/16 21:[address] CHEST W/O CONTRAST Stat RADS 07/27/16 21:[address] HEAD W/O CONTRAST Stat RADS 07/27/16 21:11 Completed Medications Generic Name Dose Route Start Last Admin Trade Name Freq PRN Reason Stop Dose Admin Potassium Chloride 40 meq/ 200 mls @ 50 mls/hr 07/27/16 22:08 07/27/16 22:30 Sterile Water IV 07/28/16 02:07 50 mls/hr ONCE STA Administration Sodium Chloride 500 mls @ 250 mls/hr 07/27/16 23:05 Sodium Chloride IV 07/28/16 01:04 BOLUS STA Sodium Chloride 1 syr 07/27/16 21:10 07/27/16 22:06 Saline Flush IVF 1 syr PRN PRN Administration To flush IV Discontinued Medications Generic Name Dose Route Start Last Admin Trade Name Freq PRN Reason Stop Dose Admin Enalaprilat 1.25 mg 07/27/16 22:57 07/27/16 23:03 Vasotec Iv IVP 07/27/16 22:58 1.25 mg ONCE STA Administration Sodium Chloride 1,000 mls @ 1,000 mls/hr 07/27/16 21:10 07/27/16 22:03 Sodium Chloride IV 07/27/16 22:09 1,000 mls/hr BOLUS STA Administration Labetalol HCl 20 mg 07/27/16 22:57 07/27/16 23:08 Trandate IVP 07/27/16 22:58 20 mg ONCE STA Administration Lidocaine HCl 10 ml 07/27/16 21:10 07/27/16 23:01 Uro-Jet MUCOUSMEMB 07/27/16 21:11 Not Given ONCE STA Ondansetron HCl 4 mg 07/27/16 21:18 07/27/16 22:06 Zofran 4 Mg/2 Ml IVP 07/27/16 21:19 4 mg ONCE STA Administration Vital Signs: Temp Pulse Resp BP Pulse Ox 07/27/16 20:53 97.8 F 76 20 192/85 H 97 Departure - Departure Time of Disposition: 23:14 Disposition: HOME SELF-CARE Discharge Problem: Enteritis, Hypokalemia Instructions: Enteritis (ED) Condition: Stable Pt referred to PMD for follow-up: Yes Allergies/Adverse Reactions: Allergies No Known Allergies Allergy (Unverified 03/14/16 10:37) Home Medications: Ambulatory Orders Esomeprazole Magnesium [Nexium] 40 mg PO BID 11/20/12 Tramadol HCl [Ultram] 50 mg PO Q4H PRN 11/20/12 Meclizine HCl 25 mg PO TID 06/27/16 Pravastatin Sodium [Pravachol] 40 mg PO BEDTIME 06/27/16 Amlodipine Besylate [Norvasc] 5 mg PO DAILY #30 07/01/16 Atenolol 50 mg PO DAILY #30 07/01/16 Benzonatate [Tessalon Perles] 100 mg PO TID #30 capsule 07/01/16 Cephalexin [Keflex] 500 mg PO Q12HR #10 capsule 07/01/16 Clonazepam [Klonopin] 0.5 mg PO DAILY #30 07/01/16 Furosemide [Lasix Tab] 20 mg PO QDAC #30 tablet 07/01/16 Ipratropium/Albuterol Neb [Duoneb] 1 vial NEB QID #100 vial.neb 07/01/16 Lisinopril [Zestril] 5 mg PO DAILY #30 tab 07/01/16 Disposition Discussed With: Patient, Family
[2016-07-27] MEDS ORDERED: SODIUM CHLORIDE 500 ML IV STA (23:05)
[2016-07-27 23:07] LABS: ADD URINE MICROSCOPIC YES
[2016-07-27 23:10] LABS: BACTERIA,URINE TRACE (NOT PRESENT)
[2016-07-27] MEDS ORDERED: VASOTEC IV IVP PRN (23:19)
[2016-07-27] MEDS ORDERED: TRANDATE IVP PRN (23:20)
[2016-07-27] MEDS ORDERED: SODIUM CHLORIDE 0.9%-KCL 20 MEQ 1,000 ML IV SCH (23:30)
[2016-07-28 01:05] VITALS: BMI 16.9
[2016-07-28 06:33] LABS: BASOPHILS % (AUTO) 0.3 % (0.0-3.0); EOSINOPHILS % (AUTO) 0.2 % (0.0-7.0); HEMATOCRIT 30.2 % (37.0-47.0); HEMOGLOBIN 10.9 g/dl (12.0-16.0); IMMATURE GRANULOCYTE % (AUTO) 1.2 % (0.0-5.0); LYMPHOCYTES % (AUTO) 14.5 (10.0-50.0); MEAN CORPUSCULAR HEMOGLOBIN 30.9 pg (27.0-31.0); MEAN CORPUSCULAR HGB CONC 36.1 (31.8-35.4); MEAN CORPUSCULAR VOLUME 85.6 fl (81.0-99.0); MONOCYTES # (AUTO) 0.9 K/uL (0.4-2.0); MONOCYTES % (AUTO) 13.6 (0-10); NEUTROPHILS # (AUTO) 4.6 K/ul (2.0-6.9); NEUTROPHILS % (AUTO) 70.2; PLATELET COUNT 345 10^3/uL (140-440); RED BLOOD COUNT 3.53 10^6/ul (4.20-5.40); WHITE BLOOD COUNT 6.61 K/ul (4.6-10.2)
[2016-07-28 06:57] LABS: ALBUMIN 3.1 g/dL (3.4-5.0); ALBUMIN/GLOBULIN RATIO 1.11; ANION GAP 12.8; BILIRUBIN,TOTAL 0.44 mg/dL (0.00-1.20); BUN/CREATININE RATIO 16.79; CREATININE 1.31 mg/dL (0.60-1.30); POTASSIUM 2.8 mmol/L (3.5-5.10); TOTAL PROTEIN 5.9 g/dL (5.8-8.1)
[2016-07-28 07:01] LABS: CALCIUM 5.9 mg/dL (8.2-10.2)
[2016-07-28] MEDS ORDERED: POTASSIUM CHLORIDE PREMIX RUN 20 MEQ in PREMIX 100 ML WATER 1 BAG IV STA ×2 (08:45→12:53)
[2016-07-28] MEDS ORDERED: K-DUR PO STA (08:47)
[2016-07-28] MEDS ORDERED: DECADRON 4 MG/ML SDV IM STA (08:49)
[2016-07-28] MEDS ORDERED: NON-FORMULARY MEDICATION (Esomeprazole Magnesium [Nexium] 40 MG) PO SCH ×44 (09:00)
[2016-07-28] MEDS ORDERED: KLONOPIN PO SCH (09:00)
[2016-07-28] MEDS: ANTIVERT PO SCH ×3 (09:00→20:43)
[2016-07-28] MEDS ORDERED: DUONEB NEB SCH (09:00)
[2016-07-28] MEDS: TENORMIN PO SCH (09:30)
[2016-07-28] MEDS: ZESTRIL PO SCH (09:30)
[2016-07-28] MEDS: NORVASC PO SCH (09:30)
[2016-07-28] MEDS: PROTONIX PO SCH (09:30)
[2016-07-28] MEDS: SODIUM CHLORIDE 0.9%-KCL 20 MEQ 1,000 ML IV SCH (09:31)
[2016-07-28] MEDS: ZOFRAN 4 MG/2 ML IVP PRN ×2 (09:31→20:40)
--- NOTE | 2016-07-28 11:37 | PCM.PROG ---
Attending Provider: ATTENDING PROVIDER: Dr. ERAN JOYNER DATE OF SERVICE: 07/28/16 SUBJECTIVE: This 81 year old WHITE/ F was hospitalized 07/27/16. The patient is admitted with gastroenteritis, nausea, vomiting and diarrhea. The patient has not had any more episodes since admission. She is currently complaining of her left foot hurting. Her potassium is low at 2.8. REVIEW OF SYSTEMS: CONSTITUTIONAL: No fever, no chills. ENDOCRINE: No weight loss or weight gain. HEENT: No sinus drainage, no sore throat. CVS: No angina symptoms. No CHF symptoms. No palpitations. No atypical chest pain for CAD. No shortness of breath. RESPIRATORY: No cough, no hemoptysis. GI: No melena. No abdominal pain. No nausea, no vomiting. : No hematuria. No polyuria. SKIN: No rash. No wounds. MUSCULOSKELETAL: Left ankle is tender; range of motion is normal. TONGUE LINING STITCHER: No blackout, no dizziness. No headache. No double vision. PSYCHIATRIC: Not anxious; no depression. No suicidal thoughts. No homicidal thoughts. PHYSICAL EXAMINATION: GENERAL: Cachetic appearing female lying in bed in no distress. VITAL SIGNS: Temperature 99.2 F, Pulse 91, Respiratory Rate 18, BP 146/80, Pulse Ox 95% HEENT: Normocephalic, atraumatic. Mucosa is dry, pallor positive. NECK: No JVP, no carotid bruit. No lymphadenopathy. CARDIAC: S1, S2, no S3. No murmur, gallop or regurgitation. LUNGS: Clear to auscultation. ABDOMEN: Soft, non-tender. Bowel sounds active. No rigidity, guarding or CVA tenderness. EXTREMITIES: No clubbing, cyanosis or edema. Left ankle is tender with no swelling. Range of motion is normal. NEUROLOGIC: Awake, alert and oriented x3. LYMPHATIC: No palpable lymph nodes SKIN: Not dry. Intact. MUSCULOSKELETAL: No joint swelling. LAB REVIEW: 07/28/16 06:30 07/28/16 06:30 07/28/16 06:30: WBC 6.61, RBC 3.53 L, Hgb 10.9 L, Hct 30.2 L D, MCV 85.6, MCH 30.9, MCHC 36.1 H, RDW Coeff of Marcelino 12.6, Plt Count 345 D, Immature Gran % ( Auto) 1.2, Neut % (Auto) 70.2, Lymph % (Auto) 14.5, [place] % (Auto) 13.6 H, Eos % (Auto) 0.2, Baso % (Auto) 0.3, Immature Gran # (Auto) 0.1, Neut # 4.6, Lymph # 1.0, [place] # 0.9, Eos # 0.0, Baso # 0.0, Sodium 123 L, Potassium 2.8 L, Chloride 86 L, Carbon Dioxide 27, Anion Gap 12.8, BUN 22 H, Creatinine 1.31 H, Estimated GFR (MDRD) 39.00, BUN/Creatinine Ratio 16.79, Glucose 99, Calcium 5.9 L, Total Bilirubin 0.44, AST 12 L, ALT 10 L, Alkaline Phosphatase 69, Total Protein 5.9, Albumin 3.1 L, Globulin 2.8, Albumin/Globulin Ratio 1.11 ASSESSMENT: 1. Gastroenteritis 2. Hypokalemia 3. Dehydration 4. Hyponatremia 5. Weakness and numbness of em extremity 6. Dyslipidemia 7. Hypertension 8. TIA 2011 9. GERD 10. Osteoarthritis and osteoporosis PLAN: 1. [address] scan of head for numbness and weakness of the hands and numbness of left foot 3. Resume home medications 4. Hold Lasix 5. Decrease NS 40 mL/hr 6. Additional 20 mEq Potassium and q.60 p.o. 7. Start clear liquids and advance as tolerated 8. X-ray left foot Plan and coordination of the patient's care discussed in the presence of Documentation Analyst and nurse. CONDITION: Stable SCRIBED BY: MEHNAZ CASTELLANOS Fruit Tester scribed while in presence of service performed by Dr. ERAN JOYNER on 07/28/16 ([id number])
--- NOTE | 2016-07-28 14:36 | DI ---
EXAM: LEFT FOOT, 3 VIEWS HISTORY: Foot numbness and pain FINDINGS: No comparison. The bones appear moderately demineralized which limits the evaluation. I n addition, the phalanges remained flexed/extended also limiting image quality. No fracture is seen. Joints are grossly intact. There is at least mild interphalangeal joint arthropathy and at least mild arthropathy at the first metatarsophalangeal joint. No joint effusion is seen. Vascular calci fications are apparent. IMPRESSION: Arthropathy and demineralization. No fracture or joint dislocation. Vascular calcifications which m ay be related to diabetic angiopathy or atherosclerosis.
--- NOTE | 2016-07-28 14:56 | HP ---
DATE OF SERVICE: 07/27/16 CHIEF COMPLAINT: Diarrhea. HISTORY OF PRESENT ILLNESS: This 81 year old WHITE/ F was hospitalized 07/27/16. The patient has been having diarrhea for 2 to 3 days, almost 4 to 5 times a day, nonbloody with abdominal cramps and vomiting. She is unable to eat anything and this started yesterday night. She came to the emergency room late in the night and was admitted with hypokalemia and acute gastroenteritis and dehydration. Potassium was 2.6 which went up to 2.8 now, still has nauseous feeling, unable to eat. REVIEW OF SYSTEMS: CONSTITUTIONAL: Weakness, tiredness. No fever, no chills. ENDOCRINE: No weight loss or weight gain. HEENT: No sinus drainage, no sore throat. CVS: No angina symptoms. No CHF symptoms. No palpitations. No atypical chest pain for CAD. No shortness of breath. RESPIRATORY: No cough, no hemoptysis. GI: Nausea, vomiting. Diarrhea. No melena. No abdominal pain. : No hematuria. No polyuria. SKIN: No rash. No wounds. MUSCULOSKELETAL: Left ankle is tender; range of motion is normal. SHROUD LINE TIER: Left-sided arm and leg weakness. No blackout, no dizziness. No headache. No double vision. PSYCHIATRIC: Not anxious; no depression. No suicidal thoughts. No homicidal thoughts. PAST MEDICAL HISTORY: Hypertension CAD CHF Dyslipidemia CVA TIA Osteoarthritis Osteoporosis Anemia PAST SURGICAL HISTORY: Cholecystectomy 2011 Cataract surgery SOCIAL HISTORY: The patient is ; has never smoked; no illicit drug use; no alcohol use. MEDICATIONS: (Home) Nexium Ultram Pravachol Meclizine Lasix Zestril Norvasc Atenolol Klonopin PHYSICAL EXAMINATION: GENERAL: Cachetic appearing female lying in bed in no distress. VITAL SIGNS: TEMPERATURE 97.7, BP 136/75, RESPIRATORY RATE 20, PULSE 81, 02 SATURATION 97%. WEIGHT 120; HEIGHT 5'7" HEENT: Normocephalic, atraumatic. Mucosa is dry, pallor positive. NECK: No JVP, no carotid bruit. No lymphadenopathy. CARDIAC: S1, S2, no S3. No murmur, gallop or regurgitation. LUNGS: Decreased entry. Clear to auscultation. ABDOMEN: Soft, non-tender. Bowel sounds active. No rigidity, guarding or CVA tenderness. EXTREMITIES: No clubbing, cyanosis or edema. Left ankle is tender with no swelling. Range of motion is normal. Strength is normal. NEUROLOGIC: Awake, alert and oriented x3. LYMPHATIC: No palpable lymph nodes SKIN: Not dry. Intact. MUSCULOSKELETAL: Grossly intact but the patient was complaining of left-sided foot tingling and numbness with weakness. LABS: White count 7.96, HCT 36.3, Hgb 13.2, platelet count 521. D. dimer 0.89. ABG pH 7.534, pc02 27.5, p02 103. Sodium 121, potassium 2.6, chloride 79. Bicarb 25 , BUN 26, creatinine 1.47. Urine is negative for any acute findings. Serology is negative. CT abdomen and pelvis negative ASSESSMENT: 1. ACUTE GASTROENTERITIS 2. DEHYDRATION 3. HYPOKALEMIA 4. CAD 5. CHF 6. HYPERTENSION 7. OSTEOPOROSIS 8. OSTEOARTHRITIS 9. HISTORY OF CVA 10. HISTORY OF TIA PLAN: 1. Admit the patient to the regular floor 2. CBC, CMP today and daily 3. NPO 4. IV fluids with potassium 5. Protonix 6. Zofran 7. Continue home medications 8. I & O's 9. Follow with the patient in daily rounds TIME SPENT: More than 55 minutes [facility]
[2016-07-28] MEDS: PRAVACHOL PO SCH (20:43)
[2016-07-28] MEDS: KLONOPIN PO SCH (20:44)
[2016-07-28] MEDS: ULTRAM PO PRN (21:06)
[2016-07-28] MEDS ORDERED: LOVENOX SUBCUT STA (22:02)
[2016-07-28] MEDS ORDERED: XANAX PO STA (22:03)
[2016-07-28 22:35] LABS: ALBUMIN 3.2 g/dL (3.4-5.0); ALBUMIN/GLOBULIN RATIO 1.14; ANION GAP 12.3; BILIRUBIN,TOTAL 0.62 mg/dL (0.00-1.20); BUN/CREATININE RATIO 14.7; CALCIUM 6.1 mg/dL (8.2-10.2); CREATININE 1.02 mg/dL (0.60-1.30); POTASSIUM 3.3 mmol/L (3.5-5.10)
[2016-07-29] MEDS: ULTRAM PO PRN (03:35)
[2016-07-29 06:10] LABS: BASOPHILS % (AUTO) 0.1 % (0.0-3.0); EOSINOPHILS # (AUTO) 0.1 K/ul (0.0-0.7); EOSINOPHILS % (AUTO) 0.8 % (0.0-7.0); HEMATOCRIT 29.9 % (37.0-47.0); HEMOGLOBIN 10.6 g/dl (12.0-16.0); IMMATURE GRANULOCYTE % (AUTO) 1.5 % (0.0-5.0); LYMPHOCYTES # (AUTO) 1.5 K/uL (0.60-3.4); LYMPHOCYTES % (AUTO) 19.8 (10.0-50.0); MEAN CORPUSCULAR HEMOGLOBIN 30.5 pg (27.0-31.0); MEAN CORPUSCULAR HGB CONC 35.5 (31.8-35.4); MEAN CORPUSCULAR VOLUME 85.9 fl (81.0-99.0); MONOCYTES # (AUTO) 1.1 K/uL (0.4-2.0); MONOCYTES % (AUTO) 14.2 (0-10); NEUTROPHILS # (AUTO) 4.7 K/ul (2.0-6.9); NEUTROPHILS % (AUTO) 63.6; PLATELET COUNT 363 10^3/uL (140-440); RED BLOOD COUNT 3.48 10^6/ul (4.20-5.40); WHITE BLOOD COUNT 7.44 K/ul (4.6-10.2)
[2016-07-29] MEDS: PROTONIX PO SCH (06:32)
[2016-07-29 06:38] LABS: ALBUMIN/GLOBULIN RATIO 1.15; ANION GAP 14.1; BILIRUBIN,TOTAL 0.65 mg/dL (0.00-1.20); BUN/CREATININE RATIO 13.39; CREATININE 1.12 mg/dL (0.60-1.30); POTASSIUM 3.1 mmol/L (3.5-5.10); TOTAL PROTEIN 5.6 g/dL (5.8-8.1)
[2016-07-29] MEDS ORDERED: SODIUM CHLORIDE 3% 500 ML IV SCH ×4 (09:00→15:33)
[2016-07-29] MEDS: TENORMIN PO SCH (09:36)
[2016-07-29] MEDS: ZESTRIL PO SCH (09:36)
[2016-07-29] MEDS: NORVASC PO SCH (09:36)
[2016-07-29] MEDS: ANTIVERT PO SCH ×3 (09:37→20:37)
--- NOTE | 2016-07-29 14:46 | MRI ---
EXAM: MRI brain without IV contrast. DATE: 29 July 2016. HISTORY: Left-sided numbness. Stroke 4-5 years ago. TECHNIQUE: Sagittal T1W, axial T2W, axial FLAIR, axial T1W, axial DWI, and coronal T2W GRE sequence s of the brain were obtained using 1.2 Sandra magnet. No IV contrast. COMPARISON: CT head 07/27/2016. MRI brain 08 February 2013. FINDINGS: Many frontal and parietal lobe sulci are minimal/mildly enlarged. The lateral ventricles , temporal tips, third ventricle and Sylvian fissures are disproportionally large. Transverse dimen lisa across the third ventricle is 12 mm. Transverse dimension across both lateral ventricles is 4. 1 cm. Aqueduct of Sylvius is patent. Fourth ventricle is not enlarged. No midline shift, mass eff ect or abnormal extra-axial fluid collection is apparent. No acute infarct, hemorrhage or neoplasm is identified. Extensive T2W/FLAIR hyperintensity is observed in the white matter abutting each lat eral ventricle, and extending into the castro radiata, centrum semiovale and subcortical white matte r bilaterally - - substantially worse compared to 2013. Several [id number] mm FLAIR hyperintense foci are scattered in the leon. The maxwell - white matter differentiation is normal. The 7th/8th deckhand crab boat nial nerve complexes, cerebellopontine angles, and visible cervical spinal cord are normal. There i s no cerebellar tonsillar ectopia. The pituitary gland is small in size, with CSF filling most of t he mildly prominent pituitary fossa. Corpus callosum body is bowed upward due to ventricular promin ence Flow voids are present in the major intracranial arteries and in the dural venous sinuses. No aneurysm, AVM or dural venous sinus thrombosis is apparent. Appearance in the lens of each eye sug gests prior cataract surgery. No other orbit abnormality is identified. The mastoid air cells are unremarkable. There is no acute sinusitis. No neck mass or lymphadenopathy is detected. No calvar ial neoplasm or acute fracture is evident. IMPRESSIONS: 1. No acute infarct, hemorrhage, or intra-axial neoplasm. 2. 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 3. Lateral and third ventriculomegaly (chronic), disproportionate to degree of cerebral cortical at rophy. In the right clinical setting, NPH could be considered. 4. Small pituitary gland - nearly empty sella appearance.
[2016-07-29] MEDS: SODIUM CHLORIDE 0.9%-KCL 20 MEQ 1,000 ML IV SCH (15:06)
--- NOTE | 2016-07-29 15:16 | CT ---
EXAM: CT lumbar spine without contra HISTORY: Numbness and tingling, pain legs COMPARISON: None TECHNIQUE: CT lumbar spine performed without intravenous contrast. Coronal and sagittal reformatte d images obtained. FINDINGS: Bones are demineralized. No fracture. Partial fusion right aspect of the the vertebral bodies at L2-L3 associated with a moderate leftward curvature lumbar spine. Trace retrolisthesis L2 on L3. Multilevel intervertebral disc space narrowing. Multilevel marginal osteophyte formation. Multilevel facet arthrosis. Atherosclerosis. Bilateral renal cysts. Small to moderate hiatal her jovana, incompletely imaged. Mild bibasilar atelectasis and/or scarring. Sacroiliac joints intact wit h mild degenerative change. T12-L1: No central canal or neural foraminal narrowing. L1-L2: Posterior disc osteophyte complex and facet arthrosis causing mild central canal narrowing. L2-L3: Posterior disc osteophyte complex and facet arthrosis causing mild central canal, moderate r ight and mild left neural foraminal narrowing. L3-L4: Posterior disc osteophyte complex and facet arthrosis causing moderate central canal and sev ere bilateral neural foraminal narrowing. L4-L5: Posterior disc osteophyte complex and facet arthrosis causing moderate central canal and mod erate bilateral neural foraminal narrowing. L5-S1: Posterior disc osteophyte complex and facet arthrosis causing moderate to severe bilateral n eural foraminal narrowing IMPRESSION: 1. No fracture. 2. 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 Please see segmental analysis, noting areas of moderate and modesta re narrowing as described. 3. Bones appear demineralized.
--- NOTE | 2016-07-29 15:19 | CT ---
EXAM: Noncontrast CT of the cervical spine HISTORY: Numbness and tingling, face and hands COMPARISON: None available TECHNIQUE: Noncontrast CT of the cervical spine FINDINGS: No acute cervical spine fracture is identified. There is severe disc height loss at C6-C7 with ante rior osteophyte formation. There is mild disc height loss at C4-C5 and C5-C6. There is multilevel facet arthropathy. There is fusion of the left-sided facets of C4 and C5. There is irregular ossif ication between the C5 and C6 lamina which is remote in appearance. There is 2.5 mm of anterior lis thesis at C3-C4 and C4-C5. There is 1 mm of posterior listhesis at C5-C6. 1.5 mm of anterolisthesis seen at C7-T1. No abnormal preverteb ral soft tissue swelling is identified. There is prominent bilateral carotid calcified atherosclero tic plaque. C2-C3: No disc bulge. Mild facet hypertrophy. No foraminal or spinal canal stenosis. C3-C4: Mild grade 1 anterolisthesis with a small diffuse disc osteophyte complex. Moderate to modesta re left facet hypertrophy. No right and mild left foraminal stenosis. No spinal canal stenosis. C4-C5: Mild grade 1 anterolisthesis with minimal if any disc bulge. Fusion of the left-sided facet s. No right and minimal left foraminal stenosis. No spinal canal stenosis. C5-C6: Grade 1 posterior listhesis with a diffuse disc osteophyte complex and bilateral uncovertebra l hypertrophy. Abnormal ossification between the central aspect of both lamina. There is minimal rig ht and mild left foraminal stenosis. Narrowing of the the spinal canal to 8 mm. C6-C7: Diffuse disc osteophyte complex with bilateral uncovertebral hypertrophy. Moderate right an d mild-moderate left foraminal stenosis. Narrowing of the the spinal canal to approximately 8 - 9 mm . C7-T1: No disc bulge. No foraminal or spinal canal stenosis. IMPRESSION: No acute osseous abnormality. Multilevel degenerative disc disease, up to severe at C6-C7. Multilevel facet arthropathy, up to moderate to severe on the left at C3-C4, and fusion of the left C4-C5 facets. Mild grade 1 anterolisthesis at C3-C4, C4-C5 and C7-T1. Mild grade 1 posterior listhesis at C5-C6. Findings are likely secondary to facet arthropathy. Narrowing of the the spinal canal to approximately 8 mm at C5-C6 and 8-9 mm of C6-C7. Multilevel foraminal stenosis as detailed above. Bilateral carotid calcified atherosclerotic plaque.
--- NOTE | 2016-07-29 15:26 | US ---
EXAM: Carotid ultrasound HISTORY: Numbness and tingling left side COMPARISON: 02/08/2013 TECHNIQUE: Carotid ultrasound was performed using maxwell scale, color, and Doppler imaging was perfor med. FINDINGS: Right carotid: There is atherosclerotic plaque in the bulb/internal carotid artery with atheroscler otic narrowing visually approximating 50%. Peak systolic velocity measurement in the right internal carotid artery is 1.2 meters per second. End-diastolic velocity measurement in the right internal carotid artery is 0.2 meters per second. Right internal to common carotid artery peak systolic [place] ratio is 2.1. Flow in the right vertebral artery is antegrade. Left carotid: There is atherosclerotic plaque in the bulb/internal carotid artery with atherosclero tic narrowing visually approximating 50%. Peak systolic velocity measurement in the left internal c arotid artery is 0.7 meters per second. End-diastolic velocity measurement in the left internal car otid artery is 0.2 meters per second. Left internal to common carotid artery peak systolic velocity ratio measures 1.1. Flow in the left vertebral artery is antegrade. IMPRESSION: 1. Right internal carotid: Peak systolic velocity corresponds with mild (less than 50%) stenosis. V isual estimate of narrowing approximates 50% 2. Left internal carotid: Peak systolic velocity corresponds with mild (less than 50%) stenosis . V isual estimate of narrowing approximates 50%
[2016-07-29] MEDS: PRAVACHOL PO SCH (20:37)
[2016-07-29] MEDS: KLONOPIN PO SCH (20:37)
[2016-07-30] MEDS: PROTONIX PO SCH (05:52)
[2016-07-30 07:21] LABS: BASOPHILS % (AUTO) 0.4 % (0.0-3.0); EOSINOPHILS % (AUTO) 0.6 % (0.0-7.0); HEMATOCRIT 29.4 % (37.0-47.0); HEMOGLOBIN 10.2 g/dl (12.0-16.0); IMMATURE GRANULOCYTE % (AUTO) 1.9 % (0.0-5.0); LYMPHOCYTES # (AUTO) 0.8 K/uL (0.60-3.4); LYMPHOCYTES % (AUTO) 11.9 (10.0-50.0); MEAN CORPUSCULAR HEMOGLOBIN 30.4 pg (27.0-31.0); MEAN CORPUSCULAR HGB CONC 34.7 (31.8-35.4); MEAN CORPUSCULAR VOLUME 87.8 fl (81.0-99.0); MONOCYTES % (AUTO) 14.3 (0-10); NEUTROPHILS # (AUTO) 4.7 K/ul (2.0-6.9); NEUTROPHILS % (AUTO) 70.9; PLATELET COUNT 348 10^3/uL (140-440); RED BLOOD COUNT 3.35 10^6/ul (4.20-5.40)
[2016-07-30 07:53] LABS: ALBUMIN 2.9 g/dL (3.4-5.0); ALBUMIN/GLOBULIN RATIO 1.21; ANION GAP 11.2; BILIRUBIN,TOTAL 0.46 mg/dL (0.00-1.20); BUN/CREATININE RATIO 13.07; CALCIUM 6.1 mg/dL (8.2-10.2); CREATININE 1.3 mg/dL (0.60-1.30); POTASSIUM 3.2 mmol/L (3.5-5.10); TOTAL PROTEIN 5.3 g/dL (5.8-8.1)
[2016-07-30] MEDS: NORVASC PO SCH (08:20)
[2016-07-30] MEDS: ZESTRIL PO SCH (08:20)
[2016-07-30] MEDS: TENORMIN PO SCH (08:20)
[2016-07-30] MEDS: ANTIVERT PO SCH ×3 (08:21→20:20)
[2016-07-30] MEDS: ULTRAM PO PRN ×2 (10:39→21:53)
[2016-07-30] MEDS ORDERED: K-DUR PO STA (16:35)
[2016-07-30] MEDS: KLONOPIN PO SCH (20:20)
[2016-07-30] MEDS: PRAVACHOL PO SCH (20:20)
[2016-07-31] MEDS: SODIUM CHLORIDE 0.9%-KCL 20 MEQ 1,000 ML IV SCH ×2 (00:59→22:50)
[2016-07-31 04:48] LABS: BASOPHILS # (AUTO) 0.1 K/uL (0-0.2); BASOPHILS % (AUTO) 0.7 % (0.0-3.0); EOSINOPHILS # (AUTO) 0.1 K/ul (0.0-0.7); IMMATURE GRANULOCYTE % (AUTO) 3.1 % (0.0-5.0); LYMPHOCYTES # (AUTO) 1.4 K/uL (0.60-3.4); LYMPHOCYTES % (AUTO) 20.5 (10.0-50.0); MEAN CORPUSCULAR HEMOGLOBIN 30.8 pg (27.0-31.0); MEAN CORPUSCULAR HGB CONC 34.5 (31.8-35.4); MEAN CORPUSCULAR VOLUME 89.2 fl (81.0-99.0); MONOCYTES # (AUTO) 1.1 K/uL (0.4-2.0); MONOCYTES % (AUTO) 16.2 (0-10); NEUTROPHILS % (AUTO) 58.5; PLATELET COUNT 327 10^3/uL (140-440); RED BLOOD COUNT 3.25 10^6/ul (4.20-5.40); WHITE BLOOD COUNT 6.77 K/ul (4.6-10.2)
[2016-07-31 05:04] LABS: ALBUMIN 2.8 g/dL (3.4-5.0); ALBUMIN/GLOBULIN RATIO 1.22; ANION GAP 12.8; BILIRUBIN,TOTAL 0.36 mg/dL (0.00-1.20); BUN/CREATININE RATIO 13.7; CALCIUM 6.2 mg/dL (8.2-10.2); CREATININE 1.24 mg/dL (0.60-1.30); POTASSIUM 3.8 mmol/L (3.5-5.10); TOTAL PROTEIN 5.1 g/dL (5.8-8.1)
[2016-07-31] MEDS: PROTONIX PO SCH (05:38)
[2016-07-31] MEDS: ANTIVERT PO SCH ×3 (08:22→20:51)
[2016-07-31] MEDS: TENORMIN PO SCH (08:22)
[2016-07-31] MEDS: NORVASC PO SCH (08:22)
[2016-07-31] MEDS: ZESTRIL PO SCH (08:23)
[2016-07-31] MEDS: PRAVACHOL PO SCH (20:51)
[2016-07-31] MEDS: KLONOPIN PO SCH (20:51)
[2016-08-01 04:51] LABS: BASOPHILS % (AUTO) 0.5 % (0.0-3.0); EOSINOPHILS # (AUTO) 0.1 K/ul (0.0-0.7); EOSINOPHILS % (AUTO) 1.2 % (0.0-7.0); HEMATOCRIT 27.9 % (37.0-47.0); HEMOGLOBIN 9.6 g/dl (12.0-16.0); IMMATURE GRANULOCYTE % (AUTO) 1.6 % (0.0-5.0); LYMPHOCYTES # (AUTO) 1.3 K/uL (0.60-3.4); LYMPHOCYTES % (AUTO) 21.7 (10.0-50.0); MEAN CORPUSCULAR HEMOGLOBIN 30.8 pg (27.0-31.0); MEAN CORPUSCULAR HGB CONC 34.4 (31.8-35.4); MEAN CORPUSCULAR VOLUME 89.4 fl (81.0-99.0); MONOCYTES # (AUTO) 1.1 K/uL (0.4-2.0); MONOCYTES % (AUTO) 17.6 (0-10); NEUTROPHILS # (AUTO) 3.5 K/ul (2.0-6.9); NEUTROPHILS % (AUTO) 57.4; PLATELET COUNT 307 10^3/uL (140-440); RED BLOOD COUNT 3.12 10^6/ul (4.20-5.40); WHITE BLOOD COUNT 6.08 K/ul (4.6-10.2)
[2016-08-01 05:14] LABS: ALBUMIN 2.7 g/dL (3.4-5.0); ALBUMIN/GLOBULIN RATIO 1.13; ANION GAP 10.1; BILIRUBIN,TOTAL 0.28 mg/dL (0.00-1.20); BUN/CREATININE RATIO 13.67; CALCIUM 6.5 mg/dL (8.2-10.2); CREATININE 1.17 mg/dL (0.60-1.30); POTASSIUM 4.1 mmol/L (3.5-5.10); TOTAL PROTEIN 5.1 g/dL (5.8-8.1)
[2016-08-01] MEDS: PROTONIX PO SCH (05:31)
[2016-08-01] MEDS: ZESTRIL PO SCH (08:44)
[2016-08-01] MEDS: ANTIVERT PO SCH ×2 (08:44→14:50)
[2016-08-01] MEDS: NORVASC PO SCH (08:44)
[2016-08-01] MEDS: TENORMIN PO SCH (08:44)
--- NOTE | 2016-08-01 09:40 | PCM.PROG ---
Attending Provider: ATTENDING PROVIDER: Dr. ERAN JOYNER DATE OF SERVICE: 08/01/16 SUBJECTIVE: This 81 year old WHITE/ F was hospitalized 07/27/16. The patient's family is in the room and discussed detention placement for PT/OT for strengthening; all are in agreement. The patient has no diarrhea. She states she is feeling better but still weak. The patient can walk with help of walker. REVIEW OF SYSTEMS: CONSTITUTIONAL: No fever, no chills. ENDOCRINE: No weight loss or weight gain. HEENT: No sinus drainage, no sore throat. CVS: No angina symptoms. No CHF symptoms. No palpitations. No atypical chest pain for CAD. No shortness of breath. RESPIRATORY: No cough, no hemoptysis. GI: No melena. No abdominal pain. No nausea, no vomiting. : No hematuria. No polyuria. SKIN: No rash. No wounds. MUSCULOSKELETAL: No pain. ASSISTANT STORE MANAGER OPERATIONS: No blackout, no dizziness. No headache. No double vision. PSYCHIATRIC: Not anxious; no depression. No suicidal thoughts. No homicidal thoughts. PHYSICAL EXAMINATION: GENERAL: Cachetic appearing lady lying in bed in no distress. VITAL SIGNS: Temperature 98.0 F, Pulse 74, Respiratory Rate 16, BP 112/62, Pulse Ox 96% HEENT: Normocephalic, atraumatic. Mucosa is dry, pallor positive. NECK: No JVP, no carotid bruit. No lymphadenopathy. CARDIAC: S1, S2, no S3. No murmur, gallop or regurgitation. LUNGS: Decreased entry. Clear to auscultation. ABDOMEN: Soft, non-tender. Bowel sounds active. No rigidity, guarding or CVA tenderness. EXTREMITIES: No clubbing, cyanosis or edema. NEUROLOGIC: Awake, alert and oriented x3. LYMPHATIC: No palpable lymph nodes SKIN: Not dry. Intact. MUSCULOSKELETAL: No joint swelling. LAB REVIEW: 08/01/16 04:49 08/01/16 04:49 08/01/16 04:49: WBC 6.08, RBC 3.12 L, Hgb 9.6 L, Hct 27.9 L, MCV 89.4, MCH 30.8 , MCHC 34.4, RDW Coeff of Marcelino 12.9, Plt Count 307, Immature Gran % (Auto) 1.6, Neut % (Auto) 57.4, Lymph % (Auto) 21.7, [place] % (Auto) 17.6 H, Eos % (Auto) 1.2 , Baso % (Auto) 0.5, Immature Gran # (Auto) 0.1, Neut # 3.5, Lymph # 1.3, [place] # 1.1, Eos # 0.1, Baso # 0.0, Sodium 131 L, Potassium 4.1, Chloride 103, Carbon Dioxide 22 L, Anion Gap 10.1, BUN 16, Creatinine 1.17, Estimated GFR (MDRD) 44.00, BUN/Creatinine Ratio 13.67, Glucose 83, Calcium 6.5 L, Total Bilirubin 0.28, AST 11 L, ALT 8 L, Alkaline Phosphatase 55, Total Protein 5.1 L, Albumin 2.7 L, Globulin 2.4, Albumin/Globulin Ratio 1.13 ASSESSMENT: 1. Gastroenteritis, resolved 2. Hypokalemia, resolved 3. Dehydration, resolved 4. Hyponatremia, resolved 5. Weakness and numbness of extremity better 6. Dyslipidemia 7. Hypertension 8. TIA 2011 9. GERD 10. Osteoarthritis and osteoporosis 11. CHF, stable PLAN: 1. Discontinue Diaz catheter 2. Discharge the patient to the detention for PT/OT Plan and coordination of the patient's care discussed in the presence of Adhesive Sprayer and nurse. CONDITION: Stable SCRIBED BY: MEHNAZ CASTELLANOS Audio Technician scribed while in presence of service performed by Dr. ERAN JOYNER on 08/01/16 ([id number])
[2016-08-01 14:03] VITALS: BP 121/58; TEMP 98
--- NOTE | 2016-08-05 13:50 | PN ---
DATE OF SERVICE: 07/31/16 SUBJECTIVE: The patient was admitted with acute gastroenteritis and the patient had severe hyponatremia and hypokalemia, both of them are getting better. Sodium 129 and potassium 3.8 today. The patient is feeling good and eating better. REVIEW OF SYSTEMS: CONSTITUTIONAL: No fever, no chills. HEENT: Normal. ENDOCRINE: No weight gain, no weight loss. CVS: No angina symptoms. No CHF symptoms. No palpitations. No atypical chest pain for CAD. No shortness of breath. No PND, no orthopnea. RESPIRATORY: No cough, no hemoptysis. GI: No nausea, no vomiting. No abdominal pain. : No hematuria. No polyuria. MUSCULOSKELETAL:. No joint swelling. PSYCHIATRIC: Not anxious. No depression. No suicidal thoughts. No homicidal thoughts. SKIN: Intact. No rash. PHYSICAL EXAMINATION: V/S: Blood pressure 134/67, respiratory rate 18, heart rate 79 Temperature 97.3. GENERAL: Cachetic lady siting in the bed and not in any distress. HEENT: Normocephalic, atraumatic. Ears, eyes, nose and throat normal. Mucosa dry. Pallor positive. No icterus. NECK: Supple. No JVD, no carotid bruit. No lymphadenopathy. LUNGS: Clear to auscultation. No rales or rhonchi. HEART: S1, S2 normal. No S3. No murmur, gallop or regurgitation. ABDOMEN: Soft, nontender. Bowel sounds active. No rigidity. No rebound or guarding. No CVA tenderness. EXTREMITIES: No clubbing, cyanosis or pedal edema. MUSCULOSKELETAL: No joint swelling. NEUROLOGIC: Awake, alert, oriented times three. No focal deficit. LYMPHATIC: No lymph nodes palpable. SKIN: Intact. LABS: Sodium 129, potassium 3.8, chloride 98, bicarb 22, BUN 17, creatinine 1.24, WBC 6.77, hgb 10.0, hct 29.0 and plt count 327. ASSESSMENT: 1. Status post Hypokalemia and Hyponatremia 2. Status post acute gastroenteritis 3. History fo hypertension 4. Congestive heart failure 5. Anemia which is stable PLAN: 1. Continue IV fluids 2. Regular diet 3. Activity as tolerated Will follow the patient in daily rounds. TIME SPENT: More than 30 minutes MTDD
--- NOTE | 2016-08-11 10:03 | PN ---
DATE OF SERVICE: 07/29/16 SUBJECTIVE: The patient was admitted with acute gastroenteritis, hyponatremia and hypokalemia. The patient was feeling more weak and getting numbness yesterday in the left upper extremity and left lower extremity. Repeat labs showed the sodium 115. As of now sitting at the bed eating the breakfast, she feels somewhat better. REVIEW OF SYSTEMS: CONSTITUTIONAL: No fever, no chills. HEENT: Normal. ENDOCRINE: No weight gain, no weight loss. CVS: No angina symptoms. No CHF symptoms. No palpitations. No atypical chest pain for CAD. No shortness of breath. No PND, no orthopnea. RESPIRATORY: No cough, no hemoptysis. GI: No nausea, no vomiting. No abdominal pain. : No hematuria. No polyuria. MUSCULOSKELETAL:. No joint swelling. PSYCHIATRIC: Not anxious. No depression. No suicidal thoughts. No homicidal thoughts. SKIN: Intact. No rash. PHYSICAL EXAMINATION: V/S: Blood pressure 142/77, respiratory rate 20, heart rate 74 and temperature 98.0. HEENT: Normocephalic, atraumatic. Ears, eyes, nose and throat normal. Mucosa dry. Pallor positive. No icterus. NECK: Supple. No JVD, no carotid bruit. No lymphadenopathy. LUNGS: Decreased and basilar crackles. No rales or rhonchi. HEART: S1, S2 normal. No S3. No murmur, gallop or regurgitation. ABDOMEN: Soft, nontender. Bowel sounds active. No rigidity. No rebound or guarding. No CVA tenderness. EXTREMITIES: No clubbing, cyanosis or pedal edema. MUSCULOSKELETAL: No joint swelling. NEUROLOGIC: Awake, alert, oriented times three. No focal deficit. LYMPHATIC: No lymph nodes palpable. SKIN: Intact. LABS: Sodium 118, potassium 3.1, chloride 83, bicarb 24, BUN 15, creatinine 1.12, hgb 10.6, hct 29.8 and plt count 363. ASSESSMENT: 1. Severe hyponatremia 2. Hypokalemia 3. Gastroenteritis 4. History of congestive heart failure 5. Hypertension PLAN: 1. Start 3% normal saline 30ml per hour for 4 hours then after that normal saline at 50ml per hour 2. Regular diet 3. Activity as tolerated 4. MRI of the brain with and without 5. Carotid ultrasound 6. CT of the neck without 7. CT of lumbar spine. TIME SPENT: More than 30 minutes MTDD
--- NOTE | 2016-08-11 13:00 | PN ---
DATE OF SERVICE: 07/30/16 SUBJECTIVE: The patient is sitting in the bed complains about some headache. The patient's daughter is in the room. Otherwise the patient's sodium is a lot improved from 116 to 126 today morning. The patient was given 3% saline yesterday for four hours and then we came back to the normal saline now. More awake and alert. No more diarrhea, nausea or vomiting. Potassium 3.2. REVIEW OF SYSTEMS: CONSTITUTIONAL: No fever, no chills. HEENT: Normal. ENDOCRINE: No weight gain, no weight loss. CVS: No angina symptoms. No CHF symptoms. No palpitations. No atypical chest pain for CAD. No shortness of breath. No PND, no orthopnea. RESPIRATORY: No cough, no hemoptysis. GI: No nausea, no vomiting. No abdominal pain. : No hematuria. No polyuria. MUSCULOSKELETAL:. No joint swelling. PSYCHIATRIC: Not anxious. No depression. No suicidal thoughts. No homicidal thoughts. SKIN: Intact. No rash. PHYSICAL EXAMINATION: V/S: Blood pressure 1119/63, respiratory rate 18, heart rate 84 and temperature 97.4. HEENT: Normocephalic, atraumatic. Ears, eyes, nose and throat normal. Mucosa dry. NECK: Supple. No JVD, no carotid bruit. No lymphadenopathy. LUNGS: Bilateral entry is decreased and clear to auscultation. No rales or rhonchi. HEART: S1, S2 normal. No S3. No murmur, gallop or regurgitation. ABDOMEN: Soft, nontender. Bowel sounds active. No rigidity. No rebound or guarding. No CVA tenderness. EXTREMITIES: No clubbing, cyanosis or pedal edema. MUSCULOSKELETAL: No joint swelling. NEUROLOGIC: Awake, alert, oriented times three. No focal deficit. LYMPHATIC: No lymph nodes palpable. SKIN: Intact. LABS: Sodium 126, potassium 3.2, chloride 94, bicarb 24, BUN 17, creatinine 1.30, WBC 6.70, hgb 10.2, hct 39.4 and plt count 384. ASSESSMENT: 1. Acute gastroenteritis 2. Status post severe hyponatremia and hypokalemia 3. History of coronary artery disease 4. Congestive heart failure 5. Hypertension 6. Alzheimer's dementia, questionable PLAN: 1. Replace the potassium 2. Continue normal saline 3. Out of bed to chair 4. Regular diet Will follow the patient in daily rounds. TIME SPENT: More than 30 minutes MTDD
--- NOTE | 2016-08-11 14:02 | DS ---
DATE OF SERVICE: 08/01/16 FINAL DIAGNOSIS: 1. Acute gastroenteritis 2. Dehydration 3. Status post severe hypokalemia and hyponatremia 4. Anemia which is chronic and stable 5. History of coronary artery disease 6. Hypertension 7. Dyslipidemia 8. CVA in 2013 9. TIA 10. Status post cholecystectomy 11. Status post cataract surgery 12. GERD 13. History of anemia with blood transfusion. DISCHARGE INSTRUCTIONS: Discharge the patient to the alf, [facility]. Continue home medications. Iron pills over the counter. Labs: CBC and CMP in one week and every three months. TSH and lipids every six months. Fall precautions, Decubitus ulcer precaution. Monitor hydration and nutrition status. She is a DNR. The patient's Lasix has been changed to 20mg every other day. MEDICATIONS AT DISCHARGE: Norvasc Atenolol Klonopin 0.5mg daily Nexium Lasix Zestril Meclizine Pravachol Ultram 50mg Q 4 hours PRN NEW PRESCRIPTIONS: No new medications. DIET INSTRUCTIONS: Regular Restrict fluid to 1,000ml ACTIVITY: Per PT/OT assessment. SMOKING: Non-smoker DISEASE SPECIFIC EDUCATION: Dehydration Hyponatremia Hypokalemia has been discussed. HOSPITAL COURSE: Chai Chambers who is a 81 year old female who resides by herself was recently in the hospital for acute shortness of breath and congestive heart failure last month. She went home and was having diarrhea, started feeling weak and tired. At that time the patient's family brought the patient back to the emergency room and in the emergency room she was severe hypokalemia with the 2.6 potassium, sodium was 121, BUN 26, creatinine 1.47 and that time the patient was admitted to the hospital and started on the IV fluids, replacement of the potassium the patient could not tolerate oral so IV was given. Diarrhea and vomiting was resolved in one day. CT of abdomen and pelvis did not show any acute findings. The patient's sodium dropped to 115 and 118 and at that time the patient was started on the 3% normal saline for 4-5 hours on that day at 50ml per hour and the next day morning the sodium came up to 126. The patient had a complaint of the left sided numbness and weakness for which the MRI of the brain was done which did not show any acute stroke. Carotid ultrasound did reveal any blockage. CT of cervical spine did showed a lot of degenerative joint disease and the cervical stenosis and lumbar spinal also showed the same. The tingling and numbness in the upper extremity and left foot assumed to be from the back problem. Gradually the patient was feeling better and was able to get out of the bed and do but still was feeling lot of weakness and tiredness, not eating much so the patient's family was concerned and wanted to put her in the alf at that time. She is being evaluated and sent to the alf. She will be followed in the alf by me within 5-7 days. TIME SPENT: More than 50 minutes. SONAM
== END 2016-08-01 16:54 | disposition home or self-care (01) | DRG 392 ==
LOC: ED 20:52 → MEDSURG B 23:52
PROVIDERS: ADMIT Emergency Medicine; ATTEND Emergency Medicine
DX: K52.9 Noninfective gastroenteritis and colitis, unspecified (principal); E87.1 Hypo-osmolality and hyponatremia; E87.6 Hypokalemia; E86.0 Dehydration; I10 Essential (primary) hypertension; E78.5 Hyperlipidemia, unspecified; I50.9 Heart failure, unspecified; K21.9 Gastro-esophageal reflux disease without esophagitis; D50.0 Iron deficiency anemia secondary to blood loss (chronic); K44.9 Diaphragmatic hernia without obstruction or gangrene; M25.572 Pain in left ankle and joints of left foot; R20.0 Anesthesia of skin; R20.2 Paresthesia of skin; R51 Headache; M47.9 Spondylosis, unspecified; M48.02 Spinal stenosis, cervical region; G30.9 Alzheimer's disease, unspecified; F02.80 Dementia in other diseases classified elsewhere, unspecified severity, without behavioral disturbance, psychotic disturbance, mood disturbance, and anxiety; M48.06 Spinal stenosis, lumbar region; Z79.899 Other long term (current) drug therapy; Z86.79 Personal history of other diseases of the circulatory system; Z86.73 Personal history of transient ischemic attack (TIA), and cerebral infarction without residual deficits
CPT/HCPCS: 36415; 80053; 81001; 82150; 82803; 83605; 83690; 84132; 84145; 84295; 85025; 85379; 85651; 87081; 87651; 87804; 87880; 93005; 93010; 96365; 96376; 99284

== ENCOUNTER 2017-04-01 14:45 | Outpatient (CLI) | END 2017-04-01 14:46 | disposition short-term general hospital (02) | LOC: AMBL 14:45 | PROVIDERS: ATTEND Internal Medicine Geriatric Medicine | DX: R41.82 Altered mental status, unspecified (principal); R53.1 Weakness; R47.9 Unspecified speech disturbances; R11.2 Nausea with vomiting, unspecified; R40.4 Transient alteration of awareness; I49.3 Ventricular premature depolarization; R03.1 Nonspecific low blood-pressure reading; I45.10 Unspecified right bundle-branch block; R40.2421 Glasgow coma scale score 9-12, in the field [EMT or ambulance]; Z86.73 Personal history of transient ischemic attack (TIA), and cerebral infarction without residual deficits ==